=== PATIENT | female | born 1995 | race Caucasian/White ===

== ENCOUNTER → 2023-04-02 | Outpatient (CLI) | payer OTHER, SELFPAY ==
[2023-04-02 16:39] LABS: hCG Titer Quant., Serum 60 mIU/mL (1-3)
== END | disposition home or self-care (01) ==
LOC: PAVLAB 15:51
PROVIDERS: Referring Provider Obstetrics & Gynecology; Visit Provider Obstetrics & Gynecology
DX: N91.2 Amenorrhea, unspecified (principal)
CPT/HCPCS: 36415; 84702

== ENCOUNTER → 2023-04-04 | Outpatient (CLI) | payer OTHER, SELFPAY ==
[2023-04-04 16:42] LABS: hCG Titer Quant., Serum 127 mIU/mL (1-3)
== END | disposition home or self-care (01) ==
PROVIDERS: Referring Provider Obstetrics & Gynecology; Visit Provider Obstetrics & Gynecology
DX: N91.2 Amenorrhea, unspecified (principal)
CPT/HCPCS: 36415; 84702

== ENCOUNTER → 2023-04-10 | Outpatient (CLI) | payer OTHER, SELFPAY ==
--- NOTE | 2023-04-10 16:03 | US_ITS ---
INDICATION: VIABILITY EXAMINATION: Ultrasound US OB Transvaginal COMPARISON: None. FINDINGS: 84 grayscale ultrasound images of the pelvis obtained transvaginally. In addition dedicated ovarian color Doppler interrogation was performed. UTERUS: Uterus measures : 8.7 x 5.8 x 3.7 cm. Tiny cystic endometrial structure with mean sac diameter measuring at 0.46 cm corresponding to 5 weeks +2 days. This may contain yolk sac. However, no definite pole or cardiac activity is appreciated at this time Myometrium is unremarkable. ADNEXA: Flow is documented to bilateral ovaries by color Doppler. Right ovary is unremarkable. Anechoic left ovarian 2.2 cm lesion, likely corpus luteum cyst. No significant free fluid. US/Transvaginal w/Preg US IMPRESSION: Tiny cystic endometrial structure with mean sac diameter measuring at 0.46 cm corresponding to 5 weeks +2 days. However, no definite pole or cardiac activity is appreciated at this time. Recommend correlation with serial quantitative beta-hCG values as well as short interval follow-up ultrasound to confirm viable intrauterine . Left ovarian 2.2 cm likely corpus luteum cyst. Electronically Signed: Burke Herrera MD at 1:57 EDT ,
== END | disposition home or self-care (01) ==
PROVIDERS: PCP Internal Medicine; Referring Provider Obstetrics & Gynecology; Visit Provider Obstetrics & Gynecology
DX: N91.2 Amenorrhea, unspecified (principal); Z87.59 Personal history of other complications of pregnancy, childbirth and the puerperium
CPT/HCPCS: 76817

== ENCOUNTER → 2023-04-24 | Outpatient (CLI) | payer OTHER, SELFPAY ==
--- NOTE | 2023-04-24 18:17 | US_ITS ---
INDICATION: VIABILITY COMPARISON: OB ultrasound 04/10/2023. FINDINGS: 78 grayscale ultrasound images of the pelvis obtained transvaginally demonstrate single live intrauterine measuring at 7 weeks +0 days average ultrasound age. This gives estimated date of delivery by current ultrasound of 12/11/2023. However, crown-rump length measures at 6 weeks +6 days. Yolk sac is identified. heart rate 132 bpm. Adequate amniotic fluid for gestational age. Placenta cannot be definitively identified at this gestational age. Uterine myometrium is unremarkable. Uterine cervix is long and closed. Bilateral ovaries are unremarkable. No significant free fluid. US/Transvaginal w/Preg US IMPRESSION: Single live intrauterine measuring at 7 weeks +0 days average ultrasound age. This gives estimated date of delivery by current ultrasound of 12/11/2023. However, crown-rump length measures at 6 weeks +6 days. Electronically Signed: Burke Herrera MD at 0:11 EDT ,
== END | disposition home or self-care (01) ==
LOC: US 18:13
PROVIDERS: PCP Internal Medicine; Visit Provider Obstetrics & Gynecology
DX: Z34.00 Encounter for supervision of normal first pregnancy, unspecified trimester (principal)
CPT/HCPCS: 76817

== ENCOUNTER → 2023-05-03 | Outpatient (CLI) | payer OTHER, SELFPAY ==
[2023-05-07 20:08] LABS: Chlamydia By Nucleic Acid AMP Negative (Negative); Gonococcus By Nucleic Acid AMP Negative (Negative)
== END | disposition home or self-care (01) ==
LOC: LABSPEC 17:01
PROVIDERS: PCP Internal Medicine; Referring Provider Obstetrics & Gynecology; Visit Provider Obstetrics & Gynecology
DX: O09.90 Supervision of high risk pregnancy, unspecified, unspecified trimester (principal); Z3A.00 Weeks of gestation of pregnancy not specified
CPT/HCPCS: 87491; 87591

== ENCOUNTER 2023-05-04 10:33 | Outpatient (CLI) | payer OTHER, SELFPAY ==
[2023-05-04 11:10] VITALS: BP 144/80; PULSE 83; RESP 16; TEMP 35.8; O2SAT 100; BMI 39.9
[2023-05-04] MEDS: 0.9% NaCl Peripheral Flush Adult/Peds IV (11:14)
[2023-05-04] MEDS: Dextrose 5%-Lactated Ringers 1,000 ML 999 ML IV (11:15)
[2023-05-04] MEDS: Ondansetron 4 MG/2 ML Vial IV (11:15)
[2023-05-04 12:30] VITALS: BP 139/66; PULSE 80; RESP 16; O2SAT 100
== END 2023-05-04 10:34 | disposition home or self-care (01) ==
PROVIDERS: PCP Internal Medicine; Referring Provider Obstetrics & Gynecology; Visit Provider Obstetrics & Gynecology
DX: E86.0 Dehydration (principal)
CPT/HCPCS: 96374; 96361; A4216; J2405

== ENCOUNTER 2023-05-11 11:48 | Outpatient (CLI) | payer OTHER, SELFPAY ==
[2023-05-11 11:59] VITALS: BP 147/80; PULSE 84; RESP 16; TEMP 36.1; O2SAT 99; BMI 39.4
[2023-05-11] MEDS: Dextrose 5%-Lactated Ringers 1,000 ML 999 ML IV (12:07)
[2023-05-11] MEDS: 0.9% NaCl Peripheral Flush Adult/Peds IV (12:07)
[2023-05-11] MEDS: Ondansetron 4 MG/2 ML Vial IV (12:08)
[2023-05-11 13:21] VITALS: BP 132/83; PULSE 86
== END 2023-05-11 11:49 | disposition home or self-care (01) ==
LOC: MEDOUTP 11:50
PROVIDERS: PCP Internal Medicine; Referring Provider Advanced Practice Midwife; Visit Provider Advanced Practice Midwife
DX: E86.0 Dehydration (principal)
CPT/HCPCS: 96365; 96375; A4216; J2405

== ENCOUNTER → 2023-05-18 | Outpatient (CLI) | payer OTHER, SELFPAY ==
[2023-05-18 13:28] LABS: Absolute Lymphocyte Count 1.54 X10^3/uL (0.83-4.51); Basophil# 0.02 X10^3/uL; Basophil% 0.3 % (0-1); Eosinophil# 0.03 X10^3/uL; Eosinophils% 0.5 % (0-5); Hematocrit 39.2 % (37-47); Hemoglobin 13.5 g/dL (12.0-15.0); Lymphocyte # 1.54 X10^3/ul (0.83-4.51); Lymphocyte % 25.8 % (19-41); Mean Corp Hgb Conc 34.4 g/dL (32-36); Mean Corpuscular Hgb 28.7 pg (27.0-32.0); Mean Corpuscular Volume 83.4 fL (81-99); Mean Platelet Vol. 10.9 fl (6.2-12.0); Monocyte# 0.35 X10^3/uL; Monocyte% 5.9 % (0-10); NRBC Flagged by Analyzer 0 % (0-5); Neutrophil # 4.03 X10^3/uL (2.7-7.7); Neutrophil % 67.3 % (47-70); Platelet Count 255 K/mm3 (150-450); RBC Distribution Width CV 12.6 % (11.6-14.6); RBC Distribution Width SD 38.5 fl (35.1-43.9)
[2023-05-18 13:50] LABS: Glucose Challenge Gest 1H 50g 107 mg/dL (70-140)
[2023-05-18 14:36] LABS: HIV - WCH Non-Reactive (Nonreactive); Hepatitis B Surface Antigen Non-Reactive (Nonreactive); Hepatitis C Antibody Non-Reactive (Nonreactive); Rubella IgG Reactive (Nonreactive); Syphilis Antibodies Non-reactive
[2023-05-23 05:09] LABS: Anti-Cardiolipin Ab, IgA, Qn < 9 APL U/mL (0-11); Anti-Cardiolipin Ab, IgG, Qn < 9 GPL U/mL (0-14); Anti-Cardiolipin Ab, IgM, Qn < 9 MPL U/mL (0-12); Beta-2-Glycoprotein I IgA <9 (0-25); Beta-2-Glycoprotein I IgG <9 (0-20); Beta-2-Glycoprotein I IgM <9 (0-32); Dilute Prothrombin Time (dPT) 25.1 sec (0.0-47.6); Dilute Russell Viper Venom 29.4 sec (0.0-47.0); Interpretation Comment: (.); dPT Confirm Ratio 1.19 Ratio (0.00-1.34)
== END | disposition home or self-care (01) ==
LOC: LAB 12:52
PROVIDERS: Obstetrics & Gynecology; PCP Internal Medicine; Referring Provider Obstetrics & Gynecology; Visit Provider Obstetrics & Gynecology
DX: O09.90 Supervision of high risk pregnancy, unspecified, unspecified trimester (principal); O99.891 Other specified diseases and conditions complicating pregnancy; Z3A.00 Weeks of gestation of pregnancy not specified
CPT/HCPCS: 36415; 82950; 85025; 86146; 86147; 86703; 86762; 86780; 86803; 86850; 86900; 86901; 87086; 87088; 87340

== ENCOUNTER 2023-05-29 15:03 | Emergency (ER) | payer OTHER, SELFPAY ==
[2023-05-29 15:05] VITALS: BP 135/85; PULSE 114; RESP 18; TEMP 36; O2SAT 100; BMI 39.9
--- NOTE | 2023-05-29 16:34 | EX.ED.DYSGE1 ---
HPI History of Present Illness Chief Complaint: General Illness Informant: patient Narrative Narrative: Patient presents due to concern for dehydration. She is currently 13 weeks and has been having problems with nausea and vomiting. She is currently on Phenergan. She was seen at her OBs office today where her urine was reportedly dark. Usually we will send her to the infusion center to get IV fluids but they did not have any openings so she was told to come to the emergency room for fluids. She is having no abdominal pain or cramping. She is having no spotting. PFSH PFSH Medical History no medical history no medical history Home Medications docosahexaenoic acid 200 mg capsule ( DHA) 200 mg PO DAILY 04/25/23 [History Last Taken Unknown] promethazine 12.5 mg tablet 12.5 mg PO Q6H PRN nausea and vomiting #30 tabs 05/29/23 [Rx Last Taken Unknown] Allergy/AdvReac Type Severity Reaction Status Date / Time No Known Allergies Allergy Verified 05/29/23 15:05 Family History Mother Thyroid disorder Father Bleeding disorder unknown name Surgical History H/O dilation and curettage Social History adopted: No household members: spouse current occupational status: employed current occupation: [employer] pets and animals: Yes pets and animals: cat(s) history of recent travel: No sexually active: Yes Smoking Status: Never smoker alcohol intake: never substance use type: does not use caffeine: No seatbelt use: always do you feel safe at home: Yes additional social history: Yariel RIVERA MIGUEL ED Constitutional Constitutional ED: Denies chills or fever(s) Eyes Eyes: Denies discharge from eye(s) ENT ENT ED: Denies discharge from eye(s), rhinorrhea or sore throat Cardiovascular Cardiovascular: Denies chest pain or palpitations Respiratory/Chest Respiratory/Chest: Denies cough or dyspnea Gastrointestinal Gastrointestinal: Reports nausea and vomiting; Denies abdominal pain Genitourinary Genitourinary ED: Denies dysuria Musculoskeletal Musculoskeletal: Denies back pain or extremity pain Integumentary Denies Abrasions or rash Neurologic Neurologic: Denies headache(s) or weakness Psychiatric Psychiatric: Denies anxiety or depression Allergic/Immunologic Allergic/Immunologic ED: Denies lip swelling or urticaria EXAM Physical Exam Const Vital Signs: 05/29/23 15:05 05/29/23 16:23 Temperature 96.8 F L Temperature Source Temporal Pulse Rate 114 H Respiratory Rate 18 Respiratory Effort Normal Non-Labored Blood Pressure 135/85 H Blood Pressure Mean 101 Pulse Ox 100 Positive well nourished and well developed General Appearance ED: well developed HEENT Reports normocephalic and head/scalp atraumatic Eyes PERRL and EOMs intact bilaterally Neck supple Chest Wall inspection of chest normal and palpation of chest normal Resp normal respiratory effort and clear to auscultation bilaterally Cardio regular rhythm Rate: tachycardic GI normal to inspection, nondistended, normoactive bowel sounds Palpation: soft Extremity normal to inspection Neuro oriented x3 and no sensory deficits noted Sensorium / Orientation: alert Motor Exam: strength 5/5 throughout Psych mental status grossly normal Skin no rashes or lesions noted MDM MDM MDM Narrative Medical decision making narrative: IV line established and patient given a liter IV fluids. BMP obtained to evaluate electrolyte status Lab Data Labs: Laboratory Results - last 24 hr 05/29/23 16:23 Sodium 136 Potassium 4.0 Chloride 106 Carbon Dioxide 24.0 Anion Gap 6 BUN 5 L Creatinine 0.62 Estim Creat Clear Calc 101.94 Est GFR (MDRD) Af Amer 146 Est GFR (MDRD) Non-Af 120 BUN/Creatinine Ratio 8.0 L Glucose 87 Calcium 10.1 Treatment and Re-Evaluation :: Chemistry studies unremarkable with normal potassium and renal function.. Patient be discharged upon the completion of her 1 L IV fluid bolus. Patient is comfortable with the plan. Discharge Plan Triage Chief Complaint: General Illness ED Provider: Loretta Morris Dx/Rx/DC Orders Clinical Impression: Dehydration Instructions: ED Dehydration (Adult) Prescriptions: No Action DHA 200 mg capsule 200 mg PO DAILY promethazine 12.5 mg tablet 12.5 mg PO Q6H PRN (Reason: nausea and vomiting) Qty: 30 2RF Primary Care Provider: Annemarie Guillen Referrals: Annemarie Guillen MD [Primary Care Provider] - Disposition Disposition: Home, Self Care
[2023-05-29] MEDS: 0.9% Normal Saline (1000mL) 1,000 ML 1000 ML IV (16:52)
[2023-05-29 17:05] LABS: Anion Gap 6 (5-15); BUN 5 mg/dL (7-18); Calcium,Total 10.1 mg/dL (8.5-10.1); Chloride 106 mmol/L (98-107); Creatinine, Serum 0.62 mg/dL (0.55-1.02); EST Glomerular Filtration Rate 120 mL/min (>60); Est Glom Filt Rate - Afr Amer 146 mL/min (>60); Estimated Creatinine Clearance 101.94 ml/min; Glucose 87 mg/dL (74-106); Sodium Level 136 mmol/L (136-145)
== END 2023-05-29 18:45 | disposition home or self-care (01) ==
PROVIDERS: Emergency Provider Emergency Medicine; PCP Internal Medicine; Visit Provider Emergency Medicine
DX: O99.281 Endocrine, nutritional and metabolic diseases complicating pregnancy, first trimester (principal); O21.9 Vomiting of pregnancy, unspecified; E86.0 Dehydration; Z3A.13 13 weeks gestation of pregnancy
CPT/HCPCS: 80048; 96360; 96361; 99282; J7030; A4216

== ENCOUNTER → 2023-06-12 | Outpatient (CLI) | payer OTHER, SELFPAY ==
[2023-06-12 11:38] LABS: NATERA MAILED SPECIMEN
== END | disposition home or self-care (01) ==
LOC: PAVLAB 10:00
PROVIDERS: PCP Internal Medicine; Referring Provider Advanced Practice Midwife; Visit Provider Advanced Practice Midwife
DX: Z34.02 Encounter for supervision of normal first pregnancy, second trimester (principal); Z3A.00 Weeks of gestation of pregnancy not specified
CPT/HCPCS: 36415

== ENCOUNTER → 2023-06-15 | Outpatient (CLI) | payer OTHER, SELFPAY | END | disposition home or self-care (01) | PROVIDERS: PCP Internal Medicine; Visit Provider Obstetrics & Gynecology | DX: O26.899 Other specified pregnancy related conditions, unspecified trimester (principal); R30.0 Dysuria; Z3A.00 Weeks of gestation of pregnancy not specified | CPT/HCPCS: 87086; 87088; 87186 ==

== ENCOUNTER → 2023-09-04 | Outpatient (CLI) | payer OTHER, SELFPAY ==
[2023-09-04 14:41] LABS: Absolute Lymphocyte Count 1.09 X10^3/uL (0.83-4.51); Absolute Neutrophil Count 5.3 X10^3/uL (2.0-7.7); Basophil# 0.01 X10^3/uL; Basophil% 0.1 % (0-1); Eosinophil# 0.08 X10^3/uL; Eosinophils% 1.1 % (0-5); Hematocrit 36.2 % (37-47); Hemoglobin 12.1 g/dL (12.0-15.0); Lymphocyte # 1.09 X10^3/ul (0.83-4.51); Lymphocyte % 15.6 % (19-41); Mean Corp Hgb Conc 33.4 g/dL (32-36); Mean Corpuscular Hgb 28.6 pg (27.0-32.0); Mean Corpuscular Volume 85.6 fL (81-99); Monocyte% 7.1 % (0-10); NRBC Flagged by Analyzer 0 % (0-5); Neutrophil # 5.29 X10^3/uL (2.7-7.7); Neutrophil % 75.7 % (47-70); Platelet Count 219 K/mm3 (150-450); RBC Distribution Width CV 13.5 % (11.6-14.6); RBC Distribution Width SD 41.6 fl (35.1-43.9); Red Blood Count 4.23 M/mm3 (4.2-5.4)
[2023-09-04 15:08] LABS: Glucose Challenge Gest 1H 50g 109 mg/dL (70-140)
[2023-09-04 16:27] LABS: HIV - WCH Non-Reactive (Nonreactive); Syphilis Antibodies Non-reactive
== END | disposition home or self-care (01) ==
PROVIDERS: Referring Provider Obstetrics & Gynecology; Visit Provider Obstetrics & Gynecology
DX: Z34.92 Encounter for supervision of normal pregnancy, unspecified, second trimester (principal); Z3A.22 22 weeks gestation of pregnancy
CPT/HCPCS: 36415; 82950; 85025; 86703; 86780

== ENCOUNTER → 2023-10-16 | Outpatient (CLI) | payer OTHER, SELFPAY ==
--- NOTE | 2023-10-16 14:07 | US_ITS ---
STUDY: SECOND AND THIRD TRIMESTER OBSTETRICAL ULTRASOUND REASON FOR EXAM: Female, 27 years old growth LMP: March 02, 2023. TECHNIQUE: Transabdominal TECHNICAL QUALITY: Adequate. PRIOR ULTRASOUND: None. FINDINGS: There is a single intrauterine fetus. The fetus is in a breech presentation. There is demonstrated cardiac activity with a heart rate of 136 bpm. There is a normal amniotic fluid volume. The largest amniotic fluid pocket measures 5.6 cm. The amniotic fluid index (BARRON) is 20 cm. The placenta is posterior in location and is not low lying. There are Grade 1 placental changes. The cervix was not measured. BIOMETRY: BPD: 8.1 cm: 32 weeks, 5 days HC: 30.1 cm: 33 weeks, 2 days AC: 30.4 cm: 34 weeks, 3 days FL: 6.4 cm: 32 weeks, 6 days CI: 78% FL/BPD: 78.2% FL/HC: FL/AC: 20.9% HC/AC: 1 age by current US: 33 weeks, 0 days. BRYANT by current US: December 04, 2023. Estimated weight: 2276 grams, +/- 341 grams, 77 %. Age by LMP: 32 weeks, 4 days. BRYANT by LMP: December 07, 2023. US/OB Limited With Biometrics IMPRESSION: Single live intrauterine gestation with a mean gestational age of 33 weeks. Electronically Signed: Julius Loco MD at 15:37 EST ,
== END | disposition home or self-care (01) ==
PROVIDERS: Referring Provider Obstetrics & Gynecology; Visit Provider Obstetrics & Gynecology
DX: O23.40 Unspecified infection of urinary tract in pregnancy, unspecified trimester (principal); O99.210 Obesity complicating pregnancy, unspecified trimester; Z3A.00 Weeks of gestation of pregnancy not specified
CPT/HCPCS: 76816; 87086

== ENCOUNTER → 2023-11-13 | Outpatient (CLI) | payer OTHER, SELFPAY ==
--- NOTE | 2023-11-13 16:00 | US_ITS ---
STUDY: SECOND AND THIRD TRIMESTER OBSTETRICAL ULTRASOUND - LIMITED REASON FOR EXAM: Female, 27 years old growth LMP: 03/02/2023 PRIOR ULTRASOUND: 10/16/2023 TECHNIQUE: Transabdominal TECHNICAL QUALITY: Adequate. FINDINGS: There is a single intrauterine fetus. The fetus is in a cephalic presentation. There is demonstrated cardiac activity with a heart rate of 147 bpm. There is a normal amniotic fluid volume. The largest amniotic fluid pocket measures 6.5 cm. The amniotic fluid index (BARRON) is 15.1 cm. The placenta is fundal in location. There are Grade 1 placental changes. The cervix measures cm in length. BIOMETRY: BPD: 8.8 cm: 35 weeks, 4 days HC: 33.6 cm: 38 weeks, 3 days AC: 35.1 cm: 39 weeks, 0 days FL: 7.1 cm: 36 weeks, 1 days Age by LMP: 36 weeks, 4 days. BRYANT by LMP: 12/07/2023. age by prior US: weeks, days. BRYANT by prior US: . age by current US: 37 weeks, 2 days. BRYANT by current US: 12/02/2023. Estimated weight: 3319 grams, +/- 498 grams, 84 percentile. Gender: US/OB Limited With Biometrics IMPRESSION: Living intrauterine of 37 weeks 2 days as described above. Electronically Signed: Dieudonne Sibley MD at 0:00 EDT ,
== END | disposition home or self-care (01) ==
PROVIDERS: Referring Provider Obstetrics & Gynecology; Visit Provider Obstetrics & Gynecology
DX: O09.90 Supervision of high risk pregnancy, unspecified, unspecified trimester (principal); Z3A.00 Weeks of gestation of pregnancy not specified
CPT/HCPCS: 76816; 87081

== ENCOUNTER 2023-11-16 18:30 | Outpatient (CLI) | payer OTHER, SELFPAY ==
[2023-11-16 18:46] VITALS: BP 152/85; PULSE 78
[2023-11-16 18:59] VITALS: RESP 16; TEMP 36.7
[2023-11-16 19:04] VITALS: BP 135/82; PULSE 80
[2023-11-16 19:04] LABS: Hematocrit 34.2 % (37-47); Hemoglobin 11.1 g/dL (12.0-15.0); Mean Corp Hgb Conc 32.5 g/dL (32-36); Mean Corpuscular Hgb 26.2 pg (27.0-32.0); Mean Corpuscular Volume 80.9 fL (81-99); Mean Platelet Vol. 12.3 fl (6.2-12.0); Platelet Count 208 K/mm3 (150-450); RBC Distribution Width SD 37.2 fl (35.1-43.9); Red Blood Count 4.23 M/mm3 (4.2-5.4); White Blood Count 8.3 K/mm3 (4.4-11.0)
[2023-11-16 19:19] VITALS: BP 137/74; PULSE 76
[2023-11-16 19:22] LABS: AST(SGOT) 20 U/L (15-37); Alanine Aminotransfer ALT/SGPT 13 U/L (13-56); Creatinine, Serum 0.68 mg/dL (0.55-1.02); EST Glomerular Filtration Rate 108 mL/min (>60); Est Glom Filt Rate - Afr Amer 131 mL/min (>60); Protein, Urine (Random) 29.9 mg/dL (<11.9); Protein:Creat Ratio 260 mg/g CRE (0-200); Uric Acid 4.2 mg/dL (2.6-6.0)
[2023-11-16 19:36] VITALS: BP 116/75; PULSE 78
--- NOTE | 2023-11-18 04:41 | OB.TRI.PN_ITS ---
Progress Notes Date of Service: 11/16/23 Progress Note: Patient presents for triage evaluation secondary to elevated bps FHT: 140 Moderate variability reactive no decelerations category I tracing [place]: no regular Contractions Assessment and plan: elevated bps - repetas WNL Reactive NST, reassuring maternal and status patient discharged to home to follow-up as scheduled. See problem list details for additional plan information. Laboratory Studies: Laboratory Tests 11/16/23 Range/Units 18:50 WBC 8.3 (4.4-11.0) K/mm3 RBC 4.23 (4.2-5.4) M/mm3 Hgb 11.1 L (12.0-15.0) g/dL Hct 34.2 L (37-47) % MCV 80.9 L (81-99) fL MCH 26.2 L (27.0-32.0) pg MCHC 32.5 (32-36) g/dL RDW Std Deviation 37.2 (35.1-43.9) fl RDW Coeff of Dominique 13.0 (11.6-14.6) % Plt Count 208 (150-450) K/mm3 MPV 12.3 H (6.2-12.0) fl Creatinine 0.68 (0.55-1.02) mg/dL Est GFR (MDRD) Af Amer 131 (>60) mL/min Est GFR (MDRD) Non-Af 108 (>60) mL/min Uric Acid 4.2 (2.6-6.0) mg/dL AST 20 (15-37) U/L ALT 13 (13-56) U/L U Random Total Protein 29.9 H (<11.9) mg/dL Urine Creatinine 115.00 (NO RANGE EST.) mg/dL Protein/Creatinin Ratio 260 H (0-200) mg/g CRE Charges/Coding Procedures Urinary/Genital 52xxx-59xxx: [id number] non-stress test Interp
== END 2023-11-16 19:50 | disposition home or self-care (01) ==
LOC: WPOUT 18:38 → WP 18:38
PROVIDERS: Referring Provider Obstetrics & Gynecology; Visit Provider Obstetrics & Gynecology
DX: O99.891 Other specified diseases and conditions complicating pregnancy (principal); R03.0 Elevated blood-pressure reading, without diagnosis of hypertension; Z3A.00 Weeks of gestation of pregnancy not specified
CPT/HCPCS: 36415; 59025; 59050; 82565; 82570; 84156; 84450; 84460; 84550; 85027; 99221; G0378

== ENCOUNTER 2023-11-20 17:10 | Inpatient (IN) | payer OTHER, SELFPAY ==
[2023-11-20] VITALS (44 sets, daily range): BP systolic 136–167; BP diastolic 73–93; PULSE 75–109; RESP 16–20; TEMP 36.7–37.6; O2SAT 93–100; BMI 42.7
[2023-11-20 16:32] LABS: Protein, Urine (Random) 65.5 mg/dL (<11.9); Protein:Creat Ratio 425 mg/g CRE (0-200)
[2023-11-20] MEDS: 0.9% Saline Lock 10 ML Syringe IV ×2 (16:40→20:15)
[2023-11-20 16:55] LABS: Hematocrit 34.4 % (37-47); Hemoglobin 11.2 g/dL (12.0-15.0); Mean Corp Hgb Conc 32.6 g/dL (32-36); Mean Corpuscular Hgb 26.1 pg (27.0-32.0); Mean Corpuscular Volume 80.2 fL (81-99); Mean Platelet Vol. 12.5 fl (6.2-12.0); Platelet Count 199 K/mm3 (150-450); RBC Distribution Width CV 12.9 % (11.6-14.6); RBC Distribution Width SD 36.7 fl (35.1-43.9); Red Blood Count 4.29 M/mm3 (4.2-5.4)
[2023-11-20] MEDS: Acetaminophen 500 MG Tablet 1000 MG PO (17:04)
[2023-11-20 17:08] LABS: AST(SGOT) 21 U/L (15-37); Alanine Aminotransfer ALT/SGPT 11 U/L (13-56); Creatinine, Serum 0.73 mg/dL (0.55-1.02); EST Glomerular Filtration Rate 100 mL/min (>60); Est Glom Filt Rate - Afr Amer 121 mL/min (>60); Estimated Creatinine Clearance 125.09 ml/min; Uric Acid 4.8 mg/dL (2.6-6.0)
--- NOTE | 2023-11-20 17:30 | HP.PCM.OB_ITS ---
HPI - General General Date of Admission: 11/20/23 Date of Service: 11/20/23 HPI Savannah PALACIOS, is a 28 F 37.4 weeks gestation who presents to unit from office with elevated BP, visual changes and headache. Elevated P/C ratio and blood pressures. Decision made for admission Maternal Data Information BRYANT Calculator Estimated Delivery Date Method Current WG Current Estimate 12/07/23 LMP (Certain) 37w 4d Other Estimates 12/12/23 Ultrasound #1 36w 6d Final BRYANT: 11/20/23 Final BRYANT Source: US >20 weeks Gestational age: 37.4 weeks [facility] Medical History (Updated 11/20/23 @ 17:34 by Bel Wilson CNM) Pre-eclampsia Home Medications docosahexaenoic acid 200 mg capsule ( DHA) 200 mg PO DAILY 04/25/23 [History Last Taken Unknown] promethazine 12.5 mg tablet 12.5 mg PO Q6H PRN nausea and vomiting #30 tabs 05/29/23 [Rx Last Taken Unknown] famotidine 20 mg tablet (Pepcid) 20 mg PO BID 90 days #180 tabs 09/04/23 [Rx Last Taken Unknown] Allergy/AdvReac Type Severity Reaction Status Date / Time No Known Allergies Allergy Verified 11/20/23 17:01 Family History Mother Thyroid disorder Father Bleeding disorder unknown name Surgical History (Updated 11/20/23 @ 17:29 by Yvan Lanier) H/O dilation and curettage Hx of tonsillectomy Social History adopted: No household members: spouse current occupational status: employed current occupation: [employer] pets and animals: Yes pets and animals: cat(s) history of recent travel: No sexually active: Yes Smoking Status: Never smoker alcohol intake: never substance use type: does not use caffeine: No seatbelt use: always do you feel safe at home: Yes additional social history: Yariel History 3 Elective abortions Hx Para 0 Spontaneous abortions Hx # Term Pregnancies Ectopic pregnancies Hx # Pregnancies Multiple births # of living children Past Pregnancies Del. Date Name GA/Weeks Outcome Route Bth Weight Gen Labor Lgth Anesthesia Del Locatn Provider FOB 07/12/22 spontaneous 11/27/22 spontaneous Visit Details Expected Delivery Route/Plan Labor Preferences- CB/BF classes: done labor support person: stefany haros- bel and jeannette labor intervention preferences: [] pain management options preferred: epidural cut cord/dad catch:yes : yes PP control planned: [] discussed possible routes of delivery and associated risks: [] special requests: [] Plans Covid status: [] Flu vaccine: [] Tdap vaccine: given Rhogam: na LARC form signed: declined movement and labor precautions reviewed. Problem list reviewed and updated with the most current plan of care details and appropriate orders placed. Relevant counseling for the gestational age provided. Continue routine care and follow up unless otherwise noted in visit notes/problem list details OB Flowsheet Initial Weight: Not Recorded Date -?-?-?-?-?-?-?-?-?-?-?-?- EGA Weight BP Urine Prot -?-?-?-?-?-?-?-?-?-?-?-?- Glucose FHR FuHt Pres Dilation -?-?-?-?-?-?-?-?-?-?-?-?- Effaced St Visit Note 05/03/23 -?-?-?-?-?-?-?-?-?-?-?-?- 8w 6d 218 lb 4 oz 128/85 -?-?-?-?-?-?-?-?-?-?-?-?- 170 -?-?-?--?-?-?-?-?-?-?-?-?- Sm- CRL 1.8 cm c ons with LMP 05/18/23 -?-?-?-?-?-?-?-?-?-?-?-?- 11w 0d 218 lb 2 oz 126/84 -?-?-?-?-?-?-?-?-?-?-?-?- 168 -?-?-?-?-?-?-?-?-?-?-?-?- SM- no vb crampi ng nausea somewhat improved 05/29/23 -?-?-?-?-?-?-?-?-?-?-?-?- 12w 4d 211 lb 8 oz 1+ -?-?-?-?-?-?-?--?-?-?-?-?- Negative 178 -?-?-?-?-?-?-?-?-?-?-?-?- kw-no vb/crampin g. no concerns. feeling dehydrated and considering IV hydration with infusion center-recommend IV infusion 06/12/23 -?-?-?-?-?-?-?-?-?-?-?-?- 14w 4d 213 lb 4 oz 131/82 Nega tive -?-?-?-?-?-?-?-?-?-?-?-?- Negative 145 -?-?-?-?-?-?-?--?-?-?-?-?- KW-no vb/crampin g. feeling much better. desires NIPT today. AFP discussed and declined today. anatomy US on 07/1707/10/23 -?-?-?-?-?-?-?-?-?-?-?-?- 18w 4d 214 lb 8 oz 118/77 Nega tive -?-?-?-?-?-?-?-?-?-?-?-?- Negative 140 -?-?-?-?-?-?-?-?-?-?-?-?- KW-no vb/crampin g. NOB book given today. no concerns. Having a boy!! 08/07/23 -?-?-?-?-?-?-?-?-?-?-?-?- 22w 4d 215 lb 8 oz 128/79 Nega tive -?-?-?-?-?-?-?-?-?-?-?-?- Negative 145 24 -?--?-?-?-?-?-?-?-?-?-?-?- kw-no vb/crampin g. good fm. 28 weeks labs discussed. Discussed LARC and wants to think about. no concerns today 09/04/23 -?-?-?-?-?-?-?-?-?-?-?-?- 26w 4d 215 lb 2 oz 126/86 Nega tive -?-?-?-?-?-?-?-?-?-?-?-?- Negative 140 29 -?-?-?-?-?-?-?-?-?-?-?-?- JV- normal 28 we ek labs. rpt ultrasound for low lying placenta coming up soon. c/o worsening reflux. rx pepcid sent to pharmacy to take twice a day. 09/18/23 -?-?-?-?-?-?-?-?-?-?-?-?- 28w 4d 217 lb 6 oz 132/82 -?-?-?-?-?-?-?-?-?-?-?-?- 140 32 -?-?-?-?-?-?-?-?-?-?-?-?- KW-no vb/jacquelyn cohen good fm. US reviewed. 10/02/23 -?-?-?-?-?-?-?-?-?-?-?-?- 30w 4d 215 lb 125/85 Negative -?-?-?-?-?-?-?-?-?-?-?-?- Negative 145 32 -?-?-?-?-?-?-?-?-?-?-?-?- SM- no vb lof go od fm no regualr ctx doing well tdap today larc signed 10/16/23 -?-?-?-?-?-?-?-?-?-?-?-?- 32w 4d 215 lb 125/85 Negative -?-?-?-?-?-?-?-?-?-?-?-?- Negative 145 34 -?-?-?--?-?-?-?-?-?-?-?-?- SM- no vb lof go od fm no regular ctx 10/30/23 -?-?-?-?-?-?-?-?-?-?-?-?- 34w 4d 223 lb 4 oz 130/84 Nega tive -?-?-?-?-?-?-?-?-?-?-?-?- Negative 125 35 -?-?-?-?-?-?-?-?-?-?-?-?- MH-No VB, LOF. G ood FM. NST reactive 11/06/23 -?-?-?-?-?-?-?-?-?-?-?-?- 35w 4d 222 lb 2 oz 133/84 -?-?-?-?-?-?-?-?-?-?-?-?- 140 -?-?-?-?-?-?-?-?-?-?-?-?- KW- NST only yeimi ctive 11/13/23 -?-?-?-?-?-?-?-?-?-?-?-?- 36w 4d 228 lb 147/87 120/80 Trace -?-?-?-?-?-?-?-?-?-?-?-?- Negative 140 -?-?-?-?-?-?-?-?-?-?-?-?- Sm- no vb lof go od fm no regular ctx gbs collected, repeat bp WNL 11/20/23 -?-?-?-?-?-?-?-?-?-?-?-?- 37w 4d 226 lb 2 oz 138/90 1+ -?-?-?-?-?-?-?-?-?-?-?-?- Negative 130 -?-?-?-?-?-?-?-?-?-?-?-?- JV- pressures el evated and pt complains of headache and visual changes. sending to L&D. NST FHR Rate Baby A Baseline: 130 Variability:: Moderate Accelerations:: 15 x 15 Decelerations:: None NST Reactive:: Yes FHR Category:: Category I Uterine Activity:: none ROS Constitutional Constitutional: Denies change in weight, fatigue, fever(s), headache(s), poor appetite or weakness Eyes Eyes: Denies blurry vision, change in vision, floaters, seeing flashes or spots in vision ENT HEENT: Reports dizziness and headache(s); Denies loss taste/smell or sore throat Cardiovascular Cardiovascular: Reports dizziness and lightheadedness; Denies chest pain, dyspnea, irregular heart rhythm, palpitations or rapid heart rate Respiratory/Chest Respiratory/Chest: Denies change in mental status, chest tightness, cough, dyspnea or breast pain Gastrointestinal Gastrointestinal: Denies anorexia, chewing difficulty, constipation, diarrhea or weight changes Genitourinary Genitourinary: Denies difficulty urinating, dysuria, flank pain, genital pain, urinary frequency or urinary urgency Musculoskeletal Musculoskeletal: Denies back pain, difficulty walking, extremity pain, joint pain, muscle cramps or muscle weakness Integumentary Integumentary: Denies lesions or unusual bruising Neurologic Neurologic: Denies abnormal movements, abnormal speech, dizziness, numbness, seizure-like activity, syncope or weakness Psychiatric Psychiatric: Denies behavioral changes, change in appetite, confusion, depression, homicidal ideation, suicidal ideation or suicidal thoughts Endocrine Endocrinology: Denies excessive sweating, polydipsia or polyuria Hematologic/Lymphatic Hematologic/Lymphatic: Denies anemia Allergic/Immunologic Allergic/Immunologic: Denies itchy eyes, lip swelling, throat swelling, tongue swelling or wheezing Vital Signs Vital Signs Vital Signs: 11/20/23 16:17 11/20/23 16:17 11/20/23 16:20 Pulse Rate 84 Blood Pressure 160/92 H BP Systolic 160 BP Diastolic 92 Pulse Ox 98 11/20/23 16:20 11/20/23 16:22 11/20/23 16:22 Pulse Rate 86 87 Blood Pressure BP Systolic BP Diastolic Pulse Ox 98 11/20/23 16:27 11/20/23 16:27 11/20/23 16:32 Pulse Rate 89 91 Blood Pressure BP Systolic BP Diastolic Pulse Ox 98 11/20/23 16:32 11/20/23 16:35 11/20/23 16:35 Pulse Rate 83 Blood Pressure 161/92 H BP Systolic 161 BP Diastolic 92 Pulse Ox 98 11/20/23 16:37 11/20/23 16:37 11/20/23 16:42 Pulse Rate 86 87 Blood Pressure BP Systolic BP Diastolic Pulse Ox 98 11/20/23 16:42 11/20/23 16:47 11/20/23 16:47 Pulse Rate 84 Blood Pressure BP Systolic BP Diastolic Pulse Ox 98 100 11/20/23 16:50 11/20/23 16:50 11/20/23 16:52 Pulse Rate 93 85 Blood Pressure 156/90 H BP Systolic 156 BP Diastolic 90 Pulse Ox 11/20/23 16:52 11/20/23 16:57 11/20/23 16:57 Pulse Rate 85 Blood Pressure BP Systolic BP Diastolic Pulse Ox 100 96 11/20/23 17:02 11/20/23 17:02 11/20/23 17:05 Pulse Rate 84 Blood Pressure 153/92 H BP Systolic 153 BP Diastolic 92 Pulse Ox 99 11/20/23 17:05 11/20/23 17:07 11/20/23 17:07 Pulse Rate 90 95 Blood Pressure BP Systolic BP Diastolic Pulse Ox 99 11/20/23 17:12 11/20/23 17:12 11/20/23 17:17 Pulse Rate 88 89 Blood Pressure BP Systolic BP Diastolic Pulse Ox 100 11/20/23 17:17 11/20/23 17:20 11/20/23 17:20 Pulse Rate 83 Blood Pressure 167/93 H BP Systolic 167 BP Diastolic 93 Pulse Ox 99 11/20/23 17:22 11/20/23 17:22 11/20/23 17:28 Pulse Rate 83 87 Blood Pressure BP Systolic BP Diastolic Pulse Ox 99 11/20/23 17:28 Pulse Rate Blood Pressure BP Systolic BP Diastolic Pulse Ox 98 Weight Weight: 226 lb Body Mass Index (BMI) 42.7 Physical Exam Const alert, oriented x3 and no apparent distress General Appearance: cooperative Orientation / Consciousness: awake HEENT normocephalic Neck full ROM Lymph Lymphatic: no lymphadenopathy noted Chest inspection of chest normal Resp normal respiratory effort and normal air movement Effort and Inspection: able to speak in complete sentences and symmetric chest movement GI soft to palpation and non-tender Inspection: gravid Palpation: soft; Negative for tender external exam normal Manual OB Exam: dilated 1, effaced 30 and station -2 Back/Spine normal to inspection Extremity normal to inspection and full ROM Skin no rashes or lesions noted Psych mental status grossly normal Appearance: grossly normal Speech: normal speech Labs Labs Labs: Blood Type A POSITIVE Antibody Screen NEGATIVE Hct 34.4 % (37-47) L Hgb 11.2 g/dL (12.0-15.0) L Obstetrics Ultrasound Syphilis Total Ab Non-reactive Rubella IgG Antibody Reactive (Nonreactive) Hep Bs Antigen Non-Reactive (Nonreactive) Hepatitis C Antibody Non-Reactive (Nonreactive) Chlamydia DNA (RANI) Negative (Negative) N.gonorrhoeae DNA (RANI) Negative (Negative) HIV 1&2 Antibody Non-Reactive (Nonreactive) Glucose 1 Hr 50 gm 109 mg/dL (70-140) Assessment & Plan (1) History of recurrent miscarriages: COMMENT: 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 recommend weekly nsts after 34 weeks and growth US q 4 weeks (3) : QUALIFIERS: Weeks of gestation: 37 weeks Qualified Code(s): Z3A.37 - 37 weeks gestation of COMMENT: GBS neg, visualized anatomy nl, NIPT low risk, declined afp and carrier (4) Supervision of high risk , antepartum: COMMENT: PRR BRYANT 12/07/23 boy Nathan Spouse Yariel (5) Pre-eclampsia affecting , antepartum: COMMENT: IOL at 37.4 weeks PLAN: Patient presents IOL, plan management for with cytotec/felipe bulb/pitocin/AROM. Pain management: plans epidural. GBS negative. Management of any complications: none I have reviewed the [facility] and made any clinically relevant updates. Dr Pompa aware of labs/assessment/ and agrees with plan of care Charges/Coding Multi Select Codes Urinary/Genital Urinary/Genital CPT Codes: No Charge
[2023-11-20 18:05] LABS: Syphilis Antibodies Non-reactive
[2023-11-20] MEDS: miSOPROStol 25 MCG TABLET VAGINAL (18:14)
[2023-11-20] MEDS: CHLORHEXIDINE GLUC 2% CLOTH 1 EACH TOWELETTE TOPICAL (19:25)
[2023-11-20] MEDS: Ondansetron 4 MG/2 ML Vial IV (20:15)
--- NOTE | 2023-11-20 22:16 | PCM.PN.BLA ---
Progress Note Coping well with cramping current tracing: FHT: 135 Moderate variability reactive no decelerations category I tracing [place]: irregular cramping Membranes:intact SVE:150/-2 anterior position, softer consistency than previous exam. A/P: Continue with position changes Increase Cytotec to 50 mcg q 6 hours. To call if cervical exam significantly different from previous exam Epidural per anesthesia when requested neg GBS Anticipate Dr Pompa aware of above assessment and agrees with plan of care Assessment & Plan Assessment/Plan (1) Pre-eclampsia affecting , antepartum: (2) History of recurrent miscarriages: (3) Obesity: QUALIFIERS: Obesity type: unspecified obesity type Obesity classification: unspecified obesity classification Serious obesity comorbidity presence: without serious comorbidity Qualified Code(s): E66.9 - Obesity, unspecified (4) : QUALIFIERS: Weeks of gestation: 37 weeks Qualified Code(s): Z3A.37 - 37 weeks gestation of (5) Supervision of high risk , antepartum: Multi Select Codes Urinary/Genital Urinary/Genital CPT Codes: No Charge
[2023-11-21] VITALS (63 sets, daily range): BP systolic 111–182; BP diastolic 55–94; PULSE 37–136; RESP 15–18; TEMP 36.5–37.3; O2SAT 81–100
[2023-11-21] MEDS: miSOPROStol 100 MCG TABLET 50 MCG VAGINAL (04:23)
[2023-11-21] MEDS: Ondansetron 4 MG/2 ML Vial IV ×3 (06:55→21:43)
[2023-11-21] MEDS: 0.9% Saline Lock 10 ML Syringe IV ×5 (06:55→21:43)
[2023-11-21] MEDS: 0.9% Normal Saline Single 100 ML IV.SOLN. INTRA-UTER (08:20)
[2023-11-21] MEDS: CHLORHEXIDINE GLUC 2% CLOTH 1 EACH TOWELETTE TOPICAL ×2 (08:38→20:35)
--- NOTE | 2023-11-21 09:02 | PN_ITS ---
Progress Note pt is comfortable and consents to a felipe bulb placement current tracing: FHT: Moderate variability reactive no decelerations category I tracing [place]: irregular Contractions cx: /-2 22 fr felipe placed in the cervix and filled with 50cc of NS. patient tolerated this well A/P: pre-e with severe features now resolved. continue IOL. had 50mcg of cytec at 0330, start pit [id number]
[2023-11-21] MEDS: Oxytocin 15 Units/NS 250ml 15 UNITS/250 ML IV.SOLN 2 UNITS IV (10:28)
[2023-11-21] MEDS: Lactated Ringers 1,000 ML 50 ML IV ×2 (10:29→18:08)
[2023-11-21] MEDS: LACTATED RINGERS 500 ML 999 ML IV ×2 (12:39→18:18)
--- NOTE | 2023-11-21 13:16 | PN_ITS ---
Progress Note felipe is out and patient consents to AROM current tracing: FHT: Moderate variability reactive no decelerations category I tracing [place]: q 2 min Contractions cs: 4 cm prior to arom and 5 cm/70/-1 after arom. Clear fluid returned. infant hand presenting slightly. pt unable to tolerate reducing this. A/P: epidural now then plan to reduce hand.
[2023-11-21] MEDS: fentaNYL-bupivacaine (epidural) 100 ML BAG EPIDURAL ×3 (13:36→22:55)
[2023-11-21] MEDS: Labetalol 200 MG Tablet PO (22:05)
[2023-11-21] MEDS: Acetaminophen 500 MG Tablet PO (23:07)
[2023-11-21] MEDS: Lactated Ringers 1,000 ML 200 ML IV (23:42)
[2023-11-22] VITALS (27 sets, daily range): BP systolic 110–158; BP diastolic 58–104; PULSE 79–108; RESP 13–26; TEMP 32–37.4; O2SAT 96–100
[2023-11-22] MEDS: 0.9% Saline Lock 10 ML Syringe IV ×4 (00:11→20:30)
[2023-11-22] MEDS: LACTATED RINGERS 500 ML 999 ML IV (01:27)
[2023-11-22] MEDS: fentaNYL-bupivacaine (epidural) 100 ML BAG EPIDURAL (03:14)
[2023-11-22] MEDS: Ondansetron 4 MG/2 ML Vial IV ×2 (03:20→11:27)
[2023-11-22] MEDS: Acetaminophen 500 MG Tablet PO (05:24)
[2023-11-22] MEDS: Sodium Citrate/Citric Acid 30 ML UDC PO (05:25)
[2023-11-22] MEDS: Cefazolin 2 GM in 0.9% Normal Saline (100mL Bag) 100 ML IV (05:45)
--- NOTE | 2023-11-22 05:45 | PCM.PN.BLA ---
Progress Note pt is sitting up in bed and requesting a section. pit is now at 24 mu/min current tracing: FHT: minimal to Moderate variability at times with occasional small variable decels, reactive no decelerations currently, currently category I tracing [place]: q2-3 min Contractions cx: 7.5/80/0 (unchanged x 6 hours) reviewed tracing abnormalities since last note: more minimal variability A/P: low urine output pre-eclampsia with intermittent headaches, required 200 mg labetalol around 11 pm last night failure to progress despite max pitocin maternal exhaustion plan for primary section now.
--- NOTE | 2023-11-22 06:06 | PLAC_PTH ---
PATIENT: ROYER PALACIOS LOC: [facility] U#:[id number] AGE/SX: 28/F [facility]: Dr. Loretta Mosqueda DO : 1995 BED: 1 DIS: 11/24/2023 SPEC #: [id number] RECD: 11/22/23 08:49 STATUS: ADELAIDA APOLLO #: [id number] DANA: 11/22/23 06:[address]: Loretta Mosqueda DEPT: SURGICAL PATHOLOGY RECD BY: Aide Chnadler ENTERED: 11/22/23 12:09 SP TYPE: PLACENTA OTHR DR: No Primary Care Phys Tissues: Placenta, NOS Procedures: Surgery Specimen Level V HEADER OPERATION: section PRE-OP DIAGNOSIS: Delivery TISSUE SUBMITTED: Placenta MICROSCOPIC DIAGNOSIS Placenta: Placental disc - third trimester placenta (554 gm). - Multiple areas of infarction (largest measuring 1.5cm in greatest dimension). - Focal areas of intraparenchymal hemorrhage. - Focal increased intervillous and perivillous fibrin deposition. - Focal acute vasculitis of sub-amniotic blood vessels. Membranes - Moderate acute chorioamnionitis. Umbilical cord - three blood vessels and moderate acute funisitis. SJ: 11/26/23 MICROSCOPIC DESCRIPTION Slides are reviewed. GROSS DESCRIPTION SPECIMEN: PLACENTA / CLINICAL INFORMATION: A. Weight: 3.285 kg B. Gestational Age: 37 weeks C. Sex: Male PLACENTAL WEIGHT (POST FIXATION): 554 gm PLACENTAL DIMENSIONS: 22.0 x 19.0 x 3.5 cm PLACENTAL SHAPE: Usual ovoid PLACENTAL WEIGHT FOR GESTATIONAL AGE: >99 percentile. MEMBRANES - Present A. Insertion: Marginal B. Site of rupture from edge: 2.5 cm from edge of placental disc C. Color of membrane: [place]-laws D. Abnormalities: None UMBILICAL CORD - Present A. Color: [place]-laws B. Insertion: Centrally C. Length: 28.0 cm D. Diameter: 1.4 cm E. Number of vessels: Three F. Abnormalities: A few false knots are noted PLACENTAL DISC - Present A. Color of surface: [place]-laws B. surface abnormalities: None C. Maternal cotyledons: Intact with minimal tears D. Attached retro placental clot: No clot E. Cut surface: Dark red and spongy F. Lesions: Sections reveal multiple atwood-indurated areas. Largest measuring 1.5cm in greatest dimension. Maternal surface also shows a plaque like area. G. Separate clot: Multiple blood clots are noted weighing in aggregate 32gm and measures in aggregate 7.0 x 8.0 x 2.0cm SECTIONS SUBMITTED: 1. Membrane roll 2. Cord, maternal end 3. Cord, end, also contains false knot 4. Placental disc, and maternal surfaces, lesion 5. Placental disc, and maternal surfaces, lesion 6. Placental disc, and maternal surfaces, lesion 7. Placental disc, and maternal surfaces, lesion 8. Placental disc, and maternal surfaces, lesion 9. Placental disc, and maternal surfaces, lesion. 10. Placental disc, and maternal surfaces, plaque like area on maternal surface. JOSE ANTONIO/mr 11/23/23 TC:2 CPT: 03610
--- NOTE | 2023-11-22 06:43 | OP.PCM_ITS ---
Assessment & Plan (1) Pre-eclampsia affecting , antepartum: COMMENT: IOL at 37.4 weeks (2) History of recurrent miscarriages: COMMENT: APL panel negative (3) Obesity: QUALIFIERS: Obesity type: unspecified obesity type Obesity classification: unspecified obesity classification Serious obesity comorbidity presence: without serious comorbidity Qualified Code(s): E66.9 - Obesity, unspecified COMMENT: BMI 40, passed early GCT, encouraged healthy weight gain. recommend weekly nsts after 34 weeks and growth US q 4 weeks (4) : QUALIFIERS: Weeks of gestation: 37 weeks Qualified Code(s): Z3A.37 - 37 weeks gestation of COMMENT: GBS neg, visualized anatomy nl, NIPT low risk, declined afp and carrier (5) Supervision of high risk , antepartum: COMMENT: PRR BRYANT 12/07/23 boy Nathan Spouse Yariel (6) Failure to progress in first stage of labor: Maternal Data Information BRYANT Calculator Estimated Delivery Date Method Current WG Current Estimate 12/07/23 LMP (Certain) 37w 6d Other Estimates 12/12/23 Ultrasound #1 37w 1d Gestational age: 37w 6d Details Operative Information Date of Procedure: 11/22/23 Pre-Operative Diagnosis: 28y/o @ 37 weeks 6 days, pre-eclampsia, failure to progress Post-Operative Diagnosis: 28y/o @ 37 weeks 6 days, pre-eclampsia, failure to progress Classification: CARINA Procedure Type: low transverse medication reconciliation technician #1: Nhung Bajwa Type of Anesthesia: Epidural Anesthesiologist: De Grider Antibiotic Given: Ancef 2 grams IV x1 and Zithromax 500 mg/5 mL X1 Drain: Darden to straight drain Estimated Blood Loss: 400cc Procedure Start Time: 06:01 Procedure Stop Time: 06:37 Time of Delivery: 06:06 Findings Description of Procedure: The patient was brought to OR where epidural anesthesia was found to be adequate. Darden catheter was in place and somewhat bloody. The patient was placed in the dorsal supine position with leftward tilt. Patient was prepped and draped in the normal sterile fashion. Pfannenstiel skin incision was made with the scalpel and carried through to the underlying layer of fascia with the scalpel. Fascia was nicked in the midline and the incision extended laterally. The rectus bellies were dissected off superiorly and inferiorly with out complication both sharply and bluntly. The peritoneum was entered digitally. The incision was stretched and a low transverse uterine incision was made with the scalpel. The infant's head was delivered atraumatically followed by the anterior and posterior shoulders without complication the rest of the delivered. The cord was clamped and cut and the was handed off to awaiting nurse. The placenta was delivered spontaneously immediately following and was noted to be intact and have a three-vessel cord. The uterus was exteriorized cleared of all clots and debris, and the incision was closed in a double layer closure using #1 Vicrul and #1 Monocryl. The ovaries and fallopian tubes were noted to be within normal limits. The uterus was returned to the maternal abdomen and gutters were cleared of all clots and debris. The peritoneum was closed with 3-0 Monocryl in a running fashion. Gloves were changed prior to fascial closure. Fascia was closed with 0 PDS in a running fashion. Subcutaneous tissue was copiously irrigated and the skin was closed with 3-0 Monocryl in a subcuticular fashion. Mepilex dressing was applied without complication. Patient was taken to recovery in stable condition. It was discussed with the patient that based on the clinical information obtained during this encounter, combined with her history, at this time I would recommend either or rpt for future deliveries if further pregnancies are desired. Presentation: Positive for Vertex Amniotic Membrane Rupture Type: Artificial Time of Membrane Ruptured: 1200 11/21/23 Amniotic Fluid Description: Clear Placental Delivery Description: Manual Removal Placenta Disposition: [facility] Cord Vessel Description: 3 Vessels Cord Entanglement: Around neck x 1, loose Infant A Gender: Male (1 minute): 9 (5 minute): 9 Delayed Cord Clamping: Yes Complications Risks of Surgery Discussed w/Patient: Bleeding, Anesthesia Risks, Need for Future C-Sections and Injury to surrounding structure(s) including bowel and bladder Multi Select Codes Urinary/Genital Urinary/Genital CPT Codes: 42919 Delivery [facility]
[2023-11-22] MEDS: Carboprost Tromethamine 250 MCG/ML Ampul IM (06:48)
[2023-11-22] MEDS: miSOPROStol 200 MCG Tablet 1000 MCG RC (06:48)
[2023-11-22] MEDS: Azithromycin 500 MG in Dextrose 5%-Water (250mL Bag) 250 ML 250 MG IV (07:09)
[2023-11-22] MEDS: Oxytocin 15 Units/NS 250ml 15 UNITS/250 ML IV.SOLN 83 UNITS IV (07:10)
[2023-11-22] MEDS: Loperamide 2 MG Capsule PO (07:10)
[2023-11-22] MEDS: proCHLORPERazine 10 MG/2 ML Vial IV (07:28)
[2023-11-22] MEDS: Lactated Ringers 1,000 ML 100 ML IV (08:10)
[2023-11-22] MEDS: Ketorolac 15 MG/ML Vial IV ×3 (08:33→20:31)
[2023-11-22 08:47] LABS: Pathology Specimen OB SEE PATHOLOGY REPORT
[2023-11-22] MEDS: Labetalol 200 MG Tablet PO ×2 (08:55→20:31)
[2023-11-22] MEDS: Furosemide 20 MG/2 ML VIAL IV (09:07)
[2023-11-22] MEDS: Senna/Docusate Sodium 1 Tablet PO (10:14)
[2023-11-22] MEDS: Acetaminophen 500 MG Tablet 1000 MG PO ×2 (13:12→18:35)
[2023-11-22] MEDS: Prenatal Vits Tablet 1 TABLET PO (13:12)
[2023-11-22] MEDS: Enoxaparin 40 MG/0.4 ML Syringe SC (20:30)
[2023-11-23] VITALS (8 sets, daily range): BP systolic 124–147; BP diastolic 72–86; PULSE 76–100; RESP 16–18; TEMP 35.9–36.2; O2SAT 96–99
[2023-11-23] MEDS: Acetaminophen 500 MG Tablet 1000 MG PO ×4 (00:31→18:15)
[2023-11-23] MEDS: Lactated Ringers 500 ML IV.SOLN. 1000 ML IV (03:53)
[2023-11-23 04:34] LABS: Hematocrit 28.6 % (37-47); Hemoglobin 9.3 g/dL (12.0-15.0); Mean Corp Hgb Conc 32.5 g/dL (32-36); Mean Corpuscular Hgb 26.5 pg (27.0-32.0); Mean Corpuscular Volume 81.5 fL (81-99); Mean Platelet Vol. 12.1 fl (6.2-12.0); Platelet Count 138 K/mm3 (150-450); RBC Distribution Width CV 13.2 % (11.6-14.6); RBC Distribution Width SD 38.6 fl (35.1-43.9); Red Blood Count 3.51 M/mm3 (4.2-5.4); White Blood Count 10.8 K/mm3 (4.4-11.0)
[2023-11-23] MEDS: Naproxen 500 MG Tablet PO ×3 (06:53→22:56)
--- NOTE | 2023-11-23 07:54 | PN.OBGYN_ITS ---
Subjective Subjective Patient doing well without complaints. Tolerating PO. Ambulating and voiding without difficulty. feeding well. Denies chest pain, shortness of breath, calf pain/swelling, fevers, chills, lightheadedness. Objective Data Objective Data Vital Signs: Vital Signs Temp Pulse Resp BP Pulse Ox O2 Del Method 97 F L 100 16 134/76 H 98 Room Air 11/23/23 04:35 11/23/23 06:08 11/23/23 06:08 11/23/23 04:35 11/23/23 06:08 11/23/23 06:08 Oxygen Delivery Method Room Air Weight: 226 lb Body Mass Index (BMI) 42.7 Intake & Output: Intake and Output for Last 24 Hours 11/21/23 11/22/23 11/23/23 23:59 23:59 23:59 Intake Total 3507.40 / 3507.40 3150.73 / 3150.73 Output Total 800 / 800 2050 / 2050 500 / 500 Balance 2707.40 / 2707.40 1100.73 / 1100.73 -500 / -500 Lab / Micro Data 11/23/23 04:20 11/20/23 16:40 Labs: Laboratory Results - last 24 hr 11/23/23 04:20: WBC 10.8, RBC 3.51 L, Hgb 9.3 L, Hct 28.6 L, MCV 81.5, MCH 26.5 L, MCHC 32.5, RDW Std Deviation 38.6, RDW Coeff of Dominique 13.2, Plt Count 138 L, MPV 12.1 H ROS Constitutional Constitutional: Reports systems reviewed and no addt'l complaints, except as doc umented Cardiovascular Cardiovascular: Reports systems reviewed and no addt'l complaints, except as documented Respiratory/Chest Respiratory/Chest: Reports systems reviewed and no addt'l complaints, except as documented Gastrointestinal Gastrointestinal: Reports systems reviewed and no addt'l complaints, except as documented Physical Exam Const alert, oriented x3 and no apparent distress HEENT Head and Scalp: atraumatic Resp normal respiratory effort GI soft to palpation and non-tender Inspection: incision intact, healing well and drainage (none) Bimanual Exam - Vag & Uterus: uterus non-tender Uterus Palpation: uterus fundus firm (below Umbilicus) Assessment & Plan (1) delivery delivered: PLAN: Plan s/p LTCS PPD # 1 1. routine post care 2. breast feeding- support given 3. rh positive 4. rubella immune preeclampsia- repeat labs today diuresing well
[2023-11-23] MEDS: Labetalol 200 MG Tablet PO ×2 (09:49→21:35)
[2023-11-23] MEDS: Senna/Docusate Sodium 1 Tablet PO (09:49)
[2023-11-23] MEDS: 0.9% Saline Lock 10 ML Syringe IV (09:50)
[2023-11-23 12:06] LABS: ALB/GLOB Ratio 0.6 RATIO (0.9-2.4); AST(SGOT) 31 U/L (15-37); Alanine Aminotransfer ALT/SGPT 17 U/L (13-56); Albumin, Serum 2.2 g/dL (3.2-5.0); Alkaline Phosphatase 140 U/L (45-117); Anion Gap 6 (5-15); BUN 15 mg/dL (7-18); BUN/Creat Ratio 15.2 RATIO (10-20); Calcium,Total 8.8 mg/dL (8.5-10.1); Chloride 106 mmol/L (98-107); Creatinine, Serum 0.98 mg/dL (0.55-1.02); EST Glomerular Filtration Rate 71 mL/min (>60); Est Glom Filt Rate - Afr Amer 86 mL/min (>60); Estimated Creatinine Clearance 93.18 ml/min; Globulin 3.8 g/dL (2.2-4.2); Glucose 75 mg/dL (74-106); Sodium Level 134 mmol/L (136-145)
[2023-11-23] MEDS: Prenatal Vits Tablet 1 TABLET PO (12:10)
[2023-11-23] MEDS: Enoxaparin 40 MG/0.4 ML Syringe SC (21:35)
[2023-11-24] MEDS: Acetaminophen 500 MG Tablet 1000 MG PO ×2 (00:31→06:35)
[2023-11-24 02:20] VITALS: BP 132/88; PULSE 89; RESP 16; TEMP 36.2; O2SAT 97
[2023-11-24] MEDS: Naproxen 500 MG Tablet PO (06:35)
[2023-11-24 08:15] VITALS: BP 142/88; PULSE 79; RESP 18; TEMP 36.3; O2SAT 97
[2023-11-24] MEDS: Labetalol 200 MG Tablet PO (09:18)
[2023-11-24] MEDS: Prenatal Vits Tablet 1 TABLET PO (09:18)
[2023-11-24] MEDS: Senna/Docusate Sodium 1 Tablet PO (09:18)
--- NOTE | 2023-11-24 09:51 | PCM.PN.OB ---
Subjective Subjective Patient doing well without complaints. Tolerating PO. Ambulating and voiding without difficulty. feeding well. Denies chest pain, shortness of breath, calf pain/swelling, fevers, chills, lightheadedness. Objective Data Objective Data Vital Signs: Vital Signs Temp Pulse Resp BP Pulse Ox O2 Del Method 97.3 F L 79 18 142/88 H 97 Room Air 11/24/23 08:15 11/24/23 08:15 11/24/23 08:15 11/24/23 08:15 11/24/23 08:15 11/24/23 08:15 Oxygen Delivery Method Room Air Weight: 226 lb Body Mass Index (BMI) 42.7 Intake & Output: Intake and Output for Last 24 Hours 11/22/23 11/23/23 11/24/23 23:59 23:59 23:59 Intake Total 3150.73 / 3150.73 550 / 550 Output Total 2049 / 2049 1250 / 1250 Balance 1100.73 / 1100.73 -700 / -700 Lab / Micro Data 11/23/23 04:20 11/23/23 11:25 Labs: Laboratory Results - last 24 hr 11/23/23 11:25: Sodium 134 L, Potassium 4.0, Chloride 106, Carbon Dioxide 22.0, Anion Gap 6, BUN 15, Creatinine 0.98, Estim Creat Clear Calc 93.18, Est GFR (MDRD) Af Amer 86, Est GFR (MDRD) Non-Af 71, BUN/Creatinine Ratio 15.2, Glucose 75, Calcium 8.8, Total Bilirubin 0.40, AST 31, ALT 17, Alkaline Phosphatase 140 H, Total Protein 6.0 L, Albumin 2.2 L, Globulin 3.8, Albumin/Globulin Ratio 0.6 L ROS Constitutional Constitutional: Reports systems reviewed and no addt'l complaints, except as documented Cardiovascular Cardiovascular: Reports systems reviewed and no addt'l complaints, except as documented Respiratory/Chest Respiratory/Chest: Reports systems reviewed and no addt'l complaints, except as documented Gastrointestinal Gastrointestinal: Reports systems reviewed and no addt'l complaints, except as documented Physical Exam Const alert, oriented x3 and no apparent distress HEENT Head and Scalp: atraumatic Resp normal respiratory effort GI soft to palpation and non-tender Inspection: incision intact, healing well and drainage (none) Bimanual Exam - Vag & Uterus: uterus non-tender Uterus Palpation: uterus fundus firm (below Umbilicus) Assessment & Plan (1) delivery delivered: PLAN: Plan s/p LTCS PPD # 1 1. routine post care 2. breast feeding- support given 3. rh positive 4. rubella immune
[2023-11-24] MEDS: Labetalol 100 MG Tablet PO (10:33)
[2023-11-24 11:03] VITALS: BP 146/97
[2023-11-24 11:52] VITALS: BP 140/77; PULSE 67; RESP 18
--- NOTE | 2023-12-03 08:58 | PCM.DC.SUM ---
Providers Date of Admission: 11/20/23 Primary Care Physician: No Primary Care Phys Reason For Visit: PRIMARY Diagnosis Discharge Diagnosis (1) delivery delivered: Status: Inactive Code(s): O82 - Encounter for delivery without indication Plan s/p LTCS PPD # 1 1. routine post care 2. breast feeding- support given 3. rh positive 4. rubella immune Medications at Discharge Home Medications PNV 153-FA 400 mcg-om3 35 mg-dha 25 mg-epa 5 mg-fish oil chew tablet ( Gummies) 2 tab PO QHS 11/20/23 labetalol 300 mg tablet 300 mg PO BID blood pressure #60 tabs 11/24/23 naproxen 500 mg tablet 500 mg PO BID PRN PRN Pain #30 tabs 11/24/23 nifedipine 30 mg tablet,extended release 24 hr (Procardia XL) 30 mg PO DAILY blood pressure #30 tabs 11/26/23 acetaminophen 325 mg tablet (Pain Relief (acetaminophen)) 1,000 mg PO Q6H PRN pain 11/27/23 Hospital Course Summary of Care Provided Hospital Course: patient presented for IOL and had an arrest of dilation, underwent primary csection. Postoperatively patient had return of bowel and bladder function and was ambulating well, tolerating adequate p.o., and was stable for discharge to home on postop day #2. bps were mildly elevated so patient was discharged home on labetalol as well as Discharge medications naproxen and Percocet. Follow-up in office in 1 week for bp check, 2 weeks for incision check in 6 weeks for visit. preeclampsia precautions reviewed. Routine post section diet and activity instructions. Weight / BMI Weight Weight: 226 lb Body Mass Index (BMI) 42.7 ABG / Lab / Microbiology Data 11/23/23 04:20 11/23/23 11:25 D/C Instructions Discharge Diet: No restrictions Discharge Activity: May Not Drive (for 2 weeks or while taking narcotic pain medications.), May Shower and May Take a Tub Bath (in 7 days) May shower in (days): 0 May resume sexual activity in: 4-6 weeks Weight Bearing Status: Full weight bearing Call your doctor if your incision/area has: Continuous Slow Oozing, Sudden Increased Bleeding, Increased Pain/ Swelling, Increased Redness and Foul Smelling Discharge Call your doctor if you observe: Fever of 101 or Higher and Using more than 1 pad per hour (for 2 hours) Suture Line Care: Avoid Pulling/Pushing and Avoid Pinching/Bending Cleanse incision/area with: Soap & Water and Keep Dressing Clean & Dry Please Follow Up With: Chayito Pompa MD When: Call [phone] to make an appointment for an incision check in 1-2 weeks. Meaningful Use Info Meaningful Use Diagnoses (Choose all that apply): None applicable Discharge Plan Admission Admit Date/Time: 11/20/23 17:10 Attending Provider: Loretta Mosqueda Primary Care Provider: Dean Physician,Nickie Primary Instructions Patient Instructions: After a Discharge Orders/Prescriptions Prescriptions: New labetalol 300 mg tablet 300 mg PO BID Qty: 60 2RF naproxen [naproxen] 500 mg tablet 500 mg PO BID PRN PRN (Reason: Pain) Qty: 30 1RF No Action Gummies 400 mcg-35 mg- 25 mg-5 mg tablet,chewable 2 tab PO QHS acetaminophen [Pain Relief (acetaminophen)] 325 mg tablet 1,000 mg PO Q6H PRN (Reason: pain) nifedipine [Procardia XL] 30 mg tablet extended release 24hr 30 mg PO DAILY Qty: 30 3RF Referrals / Follow Up: Care Physician,No Primary [Primary Care Provider] - Disposition Disposition (needs filled in before D/C Order can be placed): Home, Self Care
== END 2023-11-24 12:25 | disposition home or self-care (01) | DRG 788 ==
LOC: WPOUT 17:14 → WP 17:14
PROVIDERS: Advanced Practice Midwife; Obstetrics & Gynecology; Admitting Provider Obstetrics & Gynecology; Referring Provider Obstetrics & Gynecology; Visit Provider Obstetrics & Gynecology
DX: O14.14 Severe pre-eclampsia complicating childbirth (principal); O26.23 Pregnancy care for patient with recurrent pregnancy loss, third trimester; O99.214 Obesity complicating childbirth; O69.81X0 Labor and delivery complicated by cord around neck, without compression, not applicable or unspecified; O76 Abnormality in fetal heart rate and rhythm complicating labor and delivery; O75.81 Maternal exhaustion complicating labor and delivery; Z37.0 Single live birth; Z3A.37 37 weeks gestation of pregnancy
CPT/HCPCS: 36415; 59025; 59050; 80053; 82565; 82570; 84156; 84450; 84460; 84550; 85027; 86780; 86850; 86900; 86901; 88307; 99221; J7120; A4216; G0378; J1940; J2405

== ENCOUNTER 2023-11-27 00:05 | Inpatient (IN) | payer OTHER, SELFPAY ==
[2023-11-27] VITALS (51 sets, daily range): BP systolic 119–163; BP diastolic 76–97; PULSE 57–92; RESP 16–28; TEMP 36.1–37.1; O2SAT 96–100; BMI 41.7; BMI 40.6
--- NOTE | 2023-11-27 00:41 | RAD_ITS ---
INDICATION: dyspnea EXAMINATION/TECHNIQUE: X-RAY - XR Chest 1 View COMPARISON: No relevant prior comparison study available FINDINGS: LINES/DEVICES: None. LUNGS: The lungs are well expanded. No consolidation, edema or effusion. No pneumothorax. MEDIASTINUM AND CARDIOVASCULAR STRUCTURES: Cardiac silhouette not enlarged. Central airways and mediastinal contour are unremarkable. BONES AND SOFT TISSUES: No acute osseous abnormalities. RAD/Chest 1 View (Portable) IMPRESSION: No acute pulmonary finding. Electronically Signed: Kahlil Mejia MD at 2:15 EDT ,
--- NOTE | 2023-11-27 00:41 | EKG12_ITS ---
Test Reason : SOB Blood Pressure : / mmHG Vent. Rate : 074 BPM Atrial Rate : 074 BPM P-R Int : 152 ms QRS Dur : 080 ms QT Int : 376 ms P-R-T Axes : 051 054 029 degrees QTc Int : 417 ms Normal sinus rhythm Borderline Nonspecific T wave abnormality Borderline Confirmed by Lyndon Jackson ([id number]), tape editor NADIA MCGEE ([id number]) on 11/28/2023 5:46:53 AM Referred By: ROSEANN Confirmed By:Lyndon Jackson
--- NOTE | 2023-11-27 01:05 | EDS_ITS ---
HPI History of Present Illness Chief Complaint: Shortness of Breath Informant: patient and spouse/S.O. Narrative Narrative: 28-year-old female presenting to the emergency room with hypertension dyspnea. Patient is day 5. She states that she developed hypertension during the last couple weeks of her and was induced. She states she labored for about 24 hours and was taken for . She states that since arriving home her blood pressures continue to be elevated and she was started on labetalol taking first dose tonight. She noticed increased leg swelling. She has had some right upper quadrant discomfort which she describes as burning more along the ribs than on the abdomen. She notes that tonight she felt short of breath particularly with laying down. She is a patient of [facility]. [facility] Medical History Pre-eclampsia Home Medications PNV 153-FA 400 mcg-om3 35 mg-dha 25 mg-epa 5 mg-fish oil chew tablet ( Gummies) 2 tab PO QHS 11/20/23 [History Last Taken 11/19/23 21:00 2 tabs] doxylamine succinate 25 mg tablet (Nighttime Sleep-Aid (doxylamine)) 25 mg PO QHS PRN insomnia 11/20/23 [History Last Taken 11/18/23 22:00 25 mg] famotidine 20 mg tablet (Pepcid) 20 mg PO Q24H PRN reflux 11/20/23 [History Last Taken 11/18/23 21:00 20 mg] labetalol 300 mg tablet 300 mg PO BID #60 tabs 11/24/23 [Rx Last Taken Unknown] naproxen 500 mg tablet 500 mg PO BID PRN PRN Pain #30 tabs 11/24/23 [Rx Last Taken Unknown] oxycodone-acetaminophen 5 mg-325 mg tablet (Percocet) 1 tab PO Q6H PRN pain 7 days #20 tabs 11/24/23 [Rx Last Taken Unknown] nifedipine 30 mg tablet,extended release 24 hr (Procardia XL) 30 mg PO DAILY #30 tabs 11/26/23 [Rx Last Taken Unknown] Allergy/AdvReac Type Severity Reaction Status Date / Time No Known Allergies Allergy Verified 11/20/23 17:01 Family History Mother Thyroid disorder Father Bleeding disorder unknown name Surgical History H/O dilation and curettage Hx of tonsillectomy Previous section Social History adopted: No household members: spouse current occupational status: employed current occupation: [employer] pets and animals: Yes pets and animals: cat(s) history of recent travel: No sexually active: Yes Smoking Status: Never smoker alcohol intake: never substance use type: does not use caffeine: No seatbelt use: always do you feel safe at home: Yes additional social history: Yariel RIVERA MIGUEL ED Constitutional Constitutional ED: Denies chills, fever(s) or weight loss Eyes Eyes: Denies change in vision or diplopia ENT ENT ED: Denies ear pain, rhinorrhea or sore throat Cardiovascular Cardiovascular: Reports orthopnea and palpitations; Denies chest pain or racing heartbeat Respiratory/Chest Respiratory/Chest: Reports dyspnea and orthopnea; Denies cough Gastrointestinal Gastrointestinal: Reports abdominal pain; Denies diarrhea, nausea or vomiting Genitourinary Genitourinary ED: Denies dysuria, hematuria or urinary frequency Musculoskeletal Musculoskeletal: Reports other Details: bilateral leg swelling ; Denies arthralgias or myalgias Integumentary Denies abscess or rash Neurologic Neurologic: Denies headache(s) or weakness Psychiatric Psychiatric: Denies anxiety, depression, suicidal ideation or suicidal thoughts Endocrine Endocrinology: Denies polydipsia, polyphagia or polyuria Allergic/Immunologic Allergic/Immunologic ED: Denies mouth swelling, tongue swelling or urticaria EXAM Physical Exam Const Vital Signs: 11/27/23 00:06 11/27/23 00:14 11/27/23 02:05 Temperature 98.3 F Temperature Source Oral Pulse Rate 81 69 Respiratory Rate 16 18 Respiratory Effort Normal Non-Labored Respiratory Depth Normal Respiratory Pattern Normal Blood Pressure 161/92 H Blood Pressure Mean 115 Pulse Ox 97 97 Oxygen Delivery Method Room Air Room Air Room Air 11/27/23 02:40 11/27/23 01:35 11/27/23 01:45 Temperature Temperature Source Pulse Rate 65 72 64 Respiratory Rate 20 H 26 H 17 Respiratory Effort Respiratory Depth Respiratory Pattern Blood Pressure 157/89 H 151/93 H Blood Pressure Mean 111 110 Pulse Ox 97 97 99 Oxygen Delivery Method Room Air 11/27/23 02:00 11/27/23 02:15 11/27/23 02:30 Temperature Temperature Source Pulse Rate 65 59 L 57 L Respiratory Rate 16 26 H 25 H Respiratory Effort Respiratory Depth Respiratory Pattern Blood Pressure 148/87 H 139/89 H 157/89 H Blood Pressure Mean 104 105 108 Pulse Ox 96 97 Oxygen Delivery Method 11/27/23 02:48 11/27/23 02:50 11/27/23 03:00 Temperature Temperature Source Pulse Rate 74 75 69 Respiratory Rate 17 28 H 27 H Respiratory Effort Respiratory Depth Respiratory Pattern Blood Pressure 142/77 H 137/86 H Blood Pressure Mean 96 102 Pulse Ox 98 98 97 Oxygen Delivery Method 11/27/23 03:15 11/27/23 03:30 11/27/23 04:38 Temperature Temperature Source Pulse Rate 65 66 60 Respiratory Rate 24 H 25 H 27 H Respiratory Effort Respiratory Depth Respiratory Pattern Blood Pressure 143/83 H 153/83 H 163/92 H Blood Pressure Mean 101 104 115 Pulse Ox 98 98 96 Oxygen Delivery Method Room Air 11/27/23 04:45 11/27/23 06:00 11/27/23 06:57 Temperature 98.7 F 98.1 F Temperature Source Oral Pulse Rate 64 67 Respiratory Rate 18 18 Respiratory Effort Respiratory Depth Respiratory Pattern Blood Pressure 148/84 H 162/95 H Blood Pressure Mean 105 117 Pulse Ox 96 98 Oxygen Delivery Method MDM MDM MDM Narrative Medical decision making narrative: Differential diagnosis is including but not limited to congestive heart failure, preeclampsia, liver dysfunction, pulmonary embolism, ACS, pneumonia, anemia. EKG is normal sinus rhythm. My independent interpretation of the chest x-ray is no acute process. White count 6.9. Hemoglobin is 8.8 which is stable for the patient. Platelet count 226. INR is 1.0 with a PTT of 26. Fibrinogen elevated 550. BMP shows a creatinine 0.66 potassium 3.7 glucose of 103 lactic acid 0.9 uric acid 4.8 magnesium 2.1 LDH 206 troponin 17. Urinalysis shows 50-100 white cells 5-10 red blood cells 0 bacteria 0-5 squamous cells 30 protein. Patient has received 2 doses of labetalol 20 mg. Current blood pressure 147/84. Right upper quadrant is nontender on repeat examination. I spoke with Dr. Marlow from obstetrics. We obtained a CTA of the chest which does not demonstrate any pulmonary embolism. There was noted to have minimal interstitial pulmonary edema in the lower lungs and trace bilateral pleural effusions. I called Dr. Marlow back with the results and the plan is admission to [facility]. History & Record Review Discussion w/independent historian: Patient, Family and Significant other Lab Data Attestation: I reviewed the patient's lab results. Labs: Laboratory Results - last 24 hr 11/27/23 11/27/23 01:09 02:48 WBC 6.9 RBC 3.34 L Hgb 8.8 L Hct 28.5 L MCV 85.3 MCH 26.3 L MCHC 30.9 L RDW Std Deviation 41.9 RDW Coeff of Dominique 13.4 Plt Count 226 MPV 10.9 Immature Gran % (Auto) 2.000 H Neut % (Auto) 69.8 Lymph % (Auto) 19.6 [place] % (Auto) 6.9 Eos % (Auto) 1.3 Baso % (Auto) 0.4 Absolute Neuts (auto) 4.8 Absolute Lymphs (auto) 1.34 Nucleated RBC % 0 PT 13.2 INR 1.0 APTT 26.3 Fibrinogen 550 H Sodium 143 Potassium 3.7 Chloride 113 H Carbon Dioxide 23.0 Anion Gap 7 BUN 9 Creatinine 0.66 Estim Creat Clear Calc 136.44 Est GFR (MDRD) Af Amer 136 Est GFR (MDRD) Non-Af 112 BUN/Creatinine Ratio 13.6 Glucose 103 Lactic Acid 0.9 Uric Acid 4.8 Calcium 8.5 Magnesium 2.1 Lactate Dehydrogenase 206 Troponin I High Sens 17 Lipase 20 Urine Color Yellow Urine Clarity Clear Urine pH 7.0 Ur Specific [place] 1.010 Urine Protein 30 H Urine Glucose (UA) Normal Urine Ketones Negative Urine Occult Blood 250 H Urine Nitrite Negative Urine Bilirubin Negative Urine Urobilinogen Normal Ur Leukocyte Esterase 500 H Urine RBC 5-10 SEEN Urine WBC 50-100 SEEN Ur Squamous Epith Cells 0-5 SEEN Urine Bacteria 0 SEEN Urine Mucus 0 SEEN Ur Random Sodium 102 Urine Creatinine 108.00 Radiography Diagnostic Testing: Clinical Impression(s) from Imaging Studies Chest X-Ray 11/27/23 00:41 IMPRESSION: No acute pulmonary finding. Electronically Signed: Kahlil Mejia MD at 2:15 EDT , EKG Initial EKG: Attestation: I personally reviewed and interpreted this EKG as follows: Comments: Normal sinus rhythm ventricular rate of 74 bpm. Management Discussion w/another healthcare provider: [facility] [facility] Discharge Plan Triage Chief Complaint: Shortness of Breath ED Provider: Faustino Mukherjee Dx/Rx/DC Orders Prescriptions: No Action Gummies 400 mcg-35 mg- 25 mg-5 mg tablet,chewable 2 tab PO QHS Nighttime Sleep-Aid (doxylamn) 25 mg tablet 25 mg PO QHS PRN (Reason: insomnia) famotidine [Pepcid] 20 mg tablet 20 mg PO Q24H PRN (Reason: reflux) labetalol 300 mg tablet 300 mg PO BID Qty: 60 2RF oxycodone-acetaminophen [Percocet] 5-325 mg tablet 1 tab PO Q6H PRN (Reason: pain) 7 Days Qty: 20 0RF naproxen [naproxen] 500 mg tablet 500 mg PO BID PRN PRN (Reason: Pain) Qty: 30 1RF nifedipine [Procardia XL] 30 mg tablet extended release 24hr 30 mg PO DAILY Qty: 30 3RF Primary Care Provider: Care Physician,No Primary Referrals: Care Physician,No Primary [Primary Care Provider] -
[2023-11-27] MEDS: Labetalol (Prefilled) 20 MG/4 ML IV ×2 (01:12→02:37)
[2023-11-27 01:23] LABS: Absolute Lymphocyte Count 1.34 X10^3/uL (0.83-4.51); Absolute Neutrophil Count 4.8 X10^3/uL (2.0-7.7); Basophil# 0.03 X10^3/uL; Basophil% 0.4 % (0-1); Eosinophil# 0.09 X10^3/uL; Eosinophils% 1.3 % (0-5); Hematocrit 28.5 % (37-47); Hemoglobin 8.8 g/dL (12.0-15.0); Lymphocyte # 1.34 X10^3/ul (0.83-4.51); Lymphocyte % 19.6 % (19-41); Mean Corp Hgb Conc 30.9 g/dL (32-36); Mean Corpuscular Hgb 26.3 pg (27.0-32.0); Mean Corpuscular Volume 85.3 fL (81-99); Mean Platelet Vol. 10.9 fl (6.2-12.0); Monocyte# 0.47 X10^3/uL; Monocyte% 6.9 % (0-10); NRBC Flagged by Analyzer 0 % (0-5); Neutrophil # 4.78 X10^3/uL (2.7-7.7); Neutrophil % 69.8 % (47-70); Platelet Count 226 K/mm3 (150-450); RBC Distribution Width CV 13.4 % (11.6-14.6); RBC Distribution Width SD 41.9 fl (35.1-43.9); Red Blood Count 3.34 M/mm3 (4.2-5.4); White Blood Count 6.9 K/mm3 (4.4-11.0)
[2023-11-27 01:34] LABS: Prothrombin Time (Protime)PT. 13.2 SECONDS (11.7-14.9)
[2023-11-27 01:36] LABS: Fibrinogen 550 mg/dl (203-444); Partial Thromboplast Time 26.3 Seconds (24.1-36.2)
[2023-11-27 01:42] LABS: Anion Gap 7 (5-15); BUN 9 mg/dL (7-18); BUN/Creat Ratio 13.6 RATIO (10-20); Calcium,Total 8.5 mg/dL (8.5-10.1); Chloride 113 mmol/L (98-107); Creatinine, Serum 0.66 mg/dL (0.55-1.02); EST Glomerular Filtration Rate 112 mL/min (>60); Est Glom Filt Rate - Afr Amer 136 mL/min (>60); Estimated Creatinine Clearance 136.44 ml/min; Glucose 103 mg/dL (74-106); Lipase 20 U/L (13-75); Magnesium 2.1 mg/dL (1.6-2.6); Potassium 3.7 mmol/L (3.5-5.1); Sodium Level 143 mmol/L (136-145); Troponin-I HS 17 pg/mL (3.0-54.0)
[2023-11-27 01:44] LABS: LDH 206 U/L (84-246); Uric Acid 4.8 mg/dL (2.6-6.0)
[2023-11-27 01:45] LABS: Lactic Acid 0.9 mmol/L (0.4-1.9)
[2023-11-27 02:52] LABS: Bacteria 0 SEEN /hpf (None Seen); Mucous, Urine 0 SEEN /hpf (<or=2+)
[2023-11-27 02:53] LABS: Color, Urine Yellow (Yellow); Glucose, Dipstick Normal (Normal); Ketone-Dipstick Negative (Negative); Leukocyte Esterase-Dipstick 500 /ul (Negative); Nitrite-Dipstick Negative (Negative); Occult Blood-Urine 250 /ul (Negative); Protein-Dipstick 30 mg/dl (Negative); Urine Bilirubin Dipstick Negative (Negative); Urine Clarity Clear (Clear); Urine Urobilinogen Normal (Normal)
[2023-11-27 03:01] LABS: Red Blood Cells-Urine 5-10 SEEN /hpf (0-5); Squamous Epithelial Cells - UA 0-5 SEEN /hpf (5-10); White Blood Cells 50-100 SEEN /hpf (0-5)
[2023-11-27 03:06] LABS: Urine Sodium 102 mmol/L (Not Establ.)
--- NOTE | 2023-11-27 04:30 | CT_ITS ---
STUDY: CTA CHEST REASON FOR EXAM: Female, 28 years old. pulmonary embolism RADIATION DOSAGE (If Supplied By Facility): CTDIvol = ( 22.40 ) mGy, DLP = ( 644.1 ) mGycm TECHNIQUE: The examination was performed with the intravenous administration of IV 100mL Isovue-370. Post-processing of the angiographic images was performed, with multiplanar reformation and 3D reconstruction. Individualized dose optimization techniques were used for this CT. COMPARISON: FINDINGS: PULMONARY ARTERIES: Normal enhancement of the main pulmonary artery and right and left pulmonary arteries. Normal enhancement of the bilateral peripheral pulmonary arteries. There is no demonstrated pulmonary embolism. AORTA: Normal thoracic aorta and visualized great vessels. There is no demonstrated aortic dissection. MEDIASTINUM: Normal heart and pericardium. There is no demonstrated mediastinal lymphadenopathy or mediastinal mass lesion. Normal hilar regions. LUNGS/PLEURA: Normal visualized trachea and bronchi. The lungs are well expanded. Minimal interstitial edema evident in the lower lungs. No pneumonitis. Trace bilateral pleural effusions. No pneumothorax. CHEST WALL: Normal chest wall structures. UPPER ABDOMEN: Normal visualized upper abdomen. OSSEOUS STRUCTURES: No acute or suspicious osseous abnormality. CT/CTA Chest W/WO Contrast IMPRESSION: No pulmonary embolism. Minimal interstitial pulmonary edema in the lower lungs, and trace bilateral pleural effusions. Electronically Signed: Kahlil Mejia MD at 5:43 EDT ,
[2023-11-27] MEDS: 0.9% Saline Lock 10 ML Syringe IV ×5 (09:58→21:35)
[2023-11-27] MEDS: Ondansetron 4 MG/2 ML Vial IV (10:18)
[2023-11-27] MEDS: Magnesium Sulfate 4gm/100mL 4 GM/100 ML IV.SOLN. IV (10:26)
[2023-11-27] MEDS: Magnesium Sulfate 20 GM/500 ML BAG IV ×2 (10:54→20:00)
[2023-11-27 11:17] LABS: Hematocrit 30.6 % (37-47); Hemoglobin 9.3 g/dL (12.0-15.0); Mean Corp Hgb Conc 30.4 g/dL (32-36); Mean Corpuscular Hgb 26.1 pg (27.0-32.0); Mean Corpuscular Volume 85.7 fL (81-99); Mean Platelet Vol. 11.1 fl (6.2-12.0); POSITIVE COUNT YES; POSITIVE MORPHOLOGY YES; Platelet Count 278 K/mm3 (150-450); RBC Distribution Width CV 13.2 % (11.6-14.6); RBC Distribution Width SD 41.1 fl (35.1-43.9); Red Blood Count 3.57 M/mm3 (4.2-5.4); White Blood Count 7.3 K/mm3 (4.4-11.0)
[2023-11-27 11:20] LABS: Differential Indicated MANUAL DIFF
[2023-11-27] MEDS: Labetalol 200 MG Tablet 300 MG PO ×2 (11:31→20:36)
[2023-11-27 11:50] LABS: Lymphocyte 24 % (19-41); Metamyelocyte 2 % (0-1); Monocyte 2 % (0-10); Myelocyte 1 % (0-0); Neutrophil-Band 1 % (0-5); Neutrophil-Segmented 70 % (47-70); Platelet Estimate ADEQUATE (ADEQ); Red Cell Morphology NORM C+C NORMAL (NORM C&C); Total Cells Counted 100 (MANUAL DIFF)
[2023-11-27 11:51] LABS: Absolute Lymphocyte Count 1.75 X10^3/uL (0.83-4.51); Absolute Neutrophil Count 5.2 X10^3/uL (2.0-7.7)
--- NOTE | 2023-11-27 13:57 | OB.TRI.NOTE ---
HPI - General General Date of Admission: 11/27/23 HPI Savannah PALACIOS, is a 28 F who presents with preeclampsia exacerbation. she started not feeling well and had tried taking extra meidcine- procardia at home, then had severe range pressures so presented for evaluation. [facility] Medical History (Updated 11/27/23 @ 17:[address] Chayito Pompa MD) delivery delivered Pre-eclampsia Home Medications PNV 153-FA 400 mcg-om3 35 mg-dha 25 mg-epa 5 mg-fish oil chew tablet ( Gummies) 2 tab PO QHS 11/20/23 [History Last Taken 11/26/23] labetalol 300 mg tablet 300 mg PO BID blood pressure #60 tabs 11/24/23 [Rx Last Taken 11/26/23 22:00] naproxen 500 mg tablet 500 mg PO BID PRN PRN Pain #30 tabs 11/24/23 [Rx Last Taken 11/26/23 19:00] nifedipine 30 mg tablet,extended release 24 hr (Procardia XL) 30 mg PO DAILY blood pressure #30 tabs 11/26/23 [Rx Last Taken 11/26/23 22:00] acetaminophen 325 mg tablet (Pain Relief (acetaminophen)) 1,000 mg PO Q6H PRN pain 11/27/23 [History Last Taken 11/26/23 18:00] Allergy/AdvReac Type Severity Reaction Status Date / Time No Known Allergies Allergy Verified 11/27/23 09:43 Family History Mother Thyroid disorder Father Bleeding disorder unknown name Surgical History H/O dilation and curettage Hx of tonsillectomy Previous section Social History adopted: No household members: spouse current occupational status: employed current occupation: [employer] pets and animals: Yes pets and animals: cat(s) history of recent travel: No sexually active: Yes Smoking Status: Never smoker alcohol intake: never substance use type: does not use caffeine: No seatbelt use: always do you feel safe at home: Yes additional social history: Yariel History 3 Elective abortions Hx Para 0 Spontaneous abortions Hx # Term Pregnancies Ectopic pregnancies Hx # Pregnancies Multiple births # of living children 1 Past Pregnancies Del. Date Name GA/Weeks Outcome Route Bth Weight Gen [facility] 07/12/22 spontaneous 11/27/22 spontaneous 11/22/23 Nathan 37 live - full term Male [facility] [place] Physical Exam Const alert, oriented x3 and no apparent distress HEENT Head and Scalp: normocephalic and atraumatic Eyes EOMs intact bilaterally Neck full ROM and no lymphadenopathy Chest inspection of chest normal Resp normal respiratory effort Neuro no focal motor deficits Motor Exam: clonus absent Assessment & Plan (1) Preeclampsia, severe: PLAN: Plan readmit, magnesium started 2g/hr after 4 g bolus. labetalol and procardia given. monitor vitals. patient diuresing well. continue to monitor. Charges/Coding Visit Charges Office Visits / Consults: 51437 OV L3 Est 20min Procedures Urinary/Genital [id number]-59xxx: 39501-81 non-stress test Interp Multi Select Codes Visit Charges Office Visit/Consults: 54516 OV L3 Est 20min
[2023-11-27 14:00] LABS: ALB/GLOB Ratio 0.6 RATIO (0.9-2.4); AST(SGOT) 32 U/L (15-37); Alanine Aminotransfer ALT/SGPT 44 U/L (13-56); Albumin, Serum 2.3 g/dL (3.2-5.0); Alkaline Phosphatase 324 U/L (45-117); Anion Gap 7 (5-15); BUN 6 mg/dL (7-18); BUN/Creat Ratio 10.7 RATIO (10-20); Chloride 114 mmol/L (98-107); Creatinine, Serum 0.56 mg/dL (0.55-1.02); EST Glomerular Filtration Rate 136 mL/min (>60); Est Glom Filt Rate - Afr Amer 165 mL/min (>60); Estimated Creatinine Clearance 158.56 ml/min; Globulin 3.7 g/dL (2.2-4.2); Glucose 93 mg/dL (74-106); Potassium 3.9 mmol/L (3.5-5.1); Sodium Level 143 mmol/L (136-145)
[2023-11-27] MEDS: NIFEdipine 30 MG Tablet PO (21:33)
[2023-11-28] VITALS (20 sets, daily range): BP systolic 112–159; BP diastolic 63–96; PULSE 70–87; RESP 16–18; TEMP 35.8–36.9; O2SAT 96–100
[2023-11-28] MEDS: Labetalol 200 MG Tablet 300 MG PO ×3 (05:04→22:22)
[2023-11-28] MEDS: Magnesium Sulfate 20 GM/500 ML BAG IV (05:36)
[2023-11-28 06:19] LABS: Hematocrit 32.8 % (37-47); Hemoglobin 10.2 g/dL (12.0-15.0); Mean Corp Hgb Conc 31.1 g/dL (32-36); Mean Corpuscular Hgb 26.7 pg (27.0-32.0); Mean Corpuscular Volume 85.9 fL (81-99); Mean Platelet Vol. 10.4 fl (6.2-12.0); Platelet Count 265 K/mm3 (150-450); RBC Distribution Width CV 13.2 % (11.6-14.6); RBC Distribution Width SD 40.7 fl (35.1-43.9); Red Blood Count 3.82 M/mm3 (4.2-5.4); White Blood Count 5.9 K/mm3 (4.4-11.0)
[2023-11-28 07:14] LABS: ALB/GLOB Ratio 0.7 RATIO (0.9-2.4); AST(SGOT) 24 U/L (15-37); Alanine Aminotransfer ALT/SGPT 39 U/L (13-56); Albumin, Serum 2.5 g/dL (3.2-5.0); Alkaline Phosphatase 308 U/L (45-117); Anion Gap 7 (5-15); BUN 5 mg/dL (7-18); BUN/Creat Ratio 7.7 RATIO (10-20); Calcium,Total 7.6 mg/dL (8.5-10.1); Chloride 110 mmol/L (98-107); Creatinine, Serum 0.65 mg/dL (0.55-1.02); EST Glomerular Filtration Rate 115 mL/min (>60); Est Glom Filt Rate - Afr Amer 140 mL/min (>60); Estimated Creatinine Clearance 136.61 ml/min; Globulin 3.7 g/dL (2.2-4.2); Glucose 105 mg/dL (74-106); Potassium 3.7 mmol/L (3.5-5.1); Protein, Total 6.2 g/dL (6.4-8.2); Sodium Level 141 mmol/L (136-145)
[2023-11-28] MEDS: 0.9% Saline Lock 10 ML Syringe IV (11:06)
--- NOTE | 2023-11-28 11:26 | PCM.PN.OB ---
Subjective Subjective patient denies current shortness of breath or chest pain. Her bps' are well controlled now. She denies headaches, visual changes or ruq opain Objective Data Objective Data Vital Signs: Vital Signs Temp Pulse Resp BP Pulse Ox O2 Del Method O2 Flow Rate 97.2 F L 87 16 134/76 H 100 Room Air 2 11/28/23 10:55 11/28/23 10:55 11/28/23 10:55 11/28/23 10:55 11/28/23 10:55 11/28/23 10:55 11/28/23 04:34 Oxygen Flow Rate (L/min) 2 Oxygen Delivery Method Room Air Weight: 215 lb 6.4 oz Body Mass Index (BMI) 40.6 Intake & Output: Intake and Output for Last 24 Hours 11/26/23 11/27/23 11/28/23 23:59 23:59 23:59 Intake Total 1105 / 1105 930 / 930 Output Total 3300 / 3300 1700 / 1700 Balance -2195 / -2195 -770 / -770 Lab / Micro Data 11/28/23 06:13 11/28/23 06:13 Labs: Laboratory Results - last 24 hr 11/27/23 10:54: Absolute Neuts (auto) 5.2, Absolute Lymphs (auto) 1.75, Total Counted 100, Neutrophils % (Manual) 70, Band Neutrophils % 1, Lymphocytes % (Manual) 24, Monocytes % (Manual) 2, Metamyelocytes % 2 H, Myelocytes % 1 H, Diff Path Review December, Platelet Estimate ADEQUATE, RBC Morphology NORM C+C, Sodium 143, Potassium 3.9, Chloride 114 H, Carbon Dioxide 22.0, Anion Gap 7, BUN 6 L, Creatinine 0.56, Estim Creat Clear Calc 158.56, Est GFR (MDRD) Af Amer 165, Est GFR (MDRD) Non-Af 136, BUN/Creatinine Ratio 10.7, Glucose 93, Calcium 9.0, Total Bilirubin 0.40, AST 32, ALT 44, Alkaline Phosphatase 324 H, Total Protein 6.0 L, Albumin 2.3 L, Globulin 3.7, Albumin/Globulin Ratio 0.6 L 11/28/23 06:13: WBC 5.9, RBC 3.82 L, Hgb 10.2 L, Hct 32.8 L, MCV 85.9, MCH 26.7 L, MCHC 31.1 L, RDW Std Deviation 40.7, RDW Coeff of Dominique 13.2, Plt Count 265, MPV 10.4, Sodium 141, Potassium 3.7, Chloride 110 H, Carbon Dioxide 24.0, Anion Gap 7, BUN 5 L, Creatinine 0.65, Estim Creat Clear Calc 136.61, Est GFR (MDRD) Af Amer 140, Est GFR (MDRD) Non-Af 115, BUN/Creatinine Ratio 7.7 L, Glucose 105, Calcium 7.6 L, Total Bilirubin 0.30, AST 24, ALT 39, Alkaline Phosphatase 308 H, Total Protein 6.2 L, Albumin 2.5 L, Globulin 3.7, Albumin/Globulin Ratio 0.7 L ROS Constitutional Constitutional: Denies chills, fatigue, fever(s), poor appetite or weakness Eyes Eyes: Denies blurry vision, change in vision, seeing flashes or spots in vision ENT HEENT: Denies dizziness, headache(s), loss taste/smell or sore throat Cardiovascular Cardiovascular: Denies chest pain, dizziness, dyspnea, irregular heart rhythm, palpitations or rapid heart rate Respiratory/Chest Respiratory/Chest: Denies chest tightness, cough, dyspnea or breast pain Gastrointestinal Gastrointestinal: Denies abdominal pain, constipation or vomiting Genitourinary Genitourinary: Denies dysuria or flank pain Musculoskeletal Musculoskeletal: Denies difficulty walking, joint pain, limited range of motion or numbness Neurologic Neurologic: Denies abnormal movements, abnormal speech, dizziness, numbness, seizure-like activity or syncope Psychiatric Psychiatric: Denies anxiety, behavioral changes, change in appetite, confusion, depression or suicidal thoughts Physical Exam Const alert, oriented x3 and no apparent distress General Appearance: cooperative and comfortable Resp normal respiratory effort Cardio regular rate GI normal to inspection, nondistended, normoactive bowel sounds GI Narrative: uterus is firm below umbilicus Palpation: soft Back/Spine no CVA tenderness and thoraco-lumbar ROM normal Extremity normal to inspection, no clubbing, cyanosis or edema, no calf tenderness and no pedal edema Psych mental status grossly normal, thought process normal, cooperative, affect normal, speech normal, activity/motor behavior normal, denies homicidal ideation and denies suicidal ideation Assessment & Plan (1) Preeclampsia, severe: PLAN: ok to stop mag now will observe in house for next 24 hours per patient request. continue labetalol 300 tid and procardia 30 xl daily
[2023-11-28] MEDS: Senna/Docusate Sodium 1 Tablet PO (13:15)
[2023-11-28 15:42] LABS: Pathologist Review Reviewed
[2023-11-28] MEDS: NIFEdipine 30 MG Tablet PO (22:22)
[2023-11-29 00:02] VITALS: BP 117/55; PULSE 72; RESP 18; TEMP 36.3; O2SAT 97
[2023-11-29 04:23] VITALS: BP 144/70; PULSE 69
[2023-11-29 04:24] VITALS: BP 144/70; PULSE 69; RESP 18
--- NOTE | 2023-11-29 05:38 | PCM.PN.OB ---
Subjective Subjective Patient doing well without complaints. She is Ambulating and voiding well. Feeding well. Denies chest pain, shortness of breath, calf pain/swelling, fevers, chills, lightheadedness. Objective Data Objective Data Vital Signs: Vital Signs Temp Pulse Resp BP Pulse Ox O2 Del Method O2 Flow Rate 97.4 F L 69 18 144/70 H 97 Room Air 2 11/29/23 00:02 11/29/23 04:24 11/29/23 04:24 11/29/23 04:24 11/29/23 00:02 11/29/23 04:11/28/23 04:34 Oxygen Flow Rate (L/min) 2 Oxygen Delivery Method Room Air Weight: 215 lb 6.4 oz Body Mass Index (BMI) 40.6 Intake & Output: Intake and Output for Last 24 Hours 11/27/23 11/28/23 11/29/23 23:59 23:59 23:59 Intake Total 1105 / 1105 1200 / 1200 Output Total 3300 / 3300 2200 / 2200 Balance -2195 / -2195 -1000 / -1000 Lab / Micro Data 11/28/23 06:13 11/28/23 06:13 Labs: Laboratory Results - last 24 hr 11/27/23 10:54: Diff Path Review Reviewed 11/28/23 06:13: WBC 5.9, RBC 3.82 L, Hgb 10.2 L, Hct 32.8 L, MCV 85.9, MCH 26.7 L, MCHC 31.1 L, RDW Std Deviation 40.7, RDW Coeff of Dominique 13.2, Plt Count 265, MPV 10.4, Sodium 141, Potassium 3.7, Chloride 110 H, Carbon Dioxide 24.0, Anion Gap 7, BUN 5 L, Creatinine 0.65, Estim Creat Clear Calc 136.61, Est GFR (MDRD) Af Amer 140, Est GFR (MDRD) Non-Af 115, BUN/Creatinine Ratio 7.7 L, Glucose 105, Calcium 7.6 L, Total Bilirubin 0.30, AST 24, ALT 39, Alkaline Phosphatase 308 H, Total Protein 6.2 L, Albumin 2.5 L, Globulin 3.7, Albumin/Globulin Ratio 0.7 L ROS Constitutional Constitutional: Denies chills, fatigue, fever(s), poor appetite or weakness Eyes Eyes: Denies blurry vision, change in vision, seeing flashes or spots in vision ENT HEENT: Denies dizziness, headache(s), loss taste/smell or sore throat Cardiovascular Cardiovascular: Denies chest pain, dizziness, dyspnea, irregular heart rhythm, palpitations or rapid heart rate Respiratory/Chest Respiratory/Chest: Denies chest tightness, cough, dyspnea or breast pain Gastrointestinal Gastrointestinal: Denies abdominal pain, constipation or vomiting Genitourinary Genitourinary: Denies dysuria or flank pain Musculoskeletal Musculoskeletal: Denies difficulty walking, joint pain, limited range of motion or numbness Neurologic Neurologic: Denies abnormal movements, abnormal speech, dizziness, numbness, seizure-like activity or syncope Psychiatric Psychiatric: Denies anxiety, behavioral changes, change in appetite, confusion, depression or suicidal thoughts Physical Exam Const alert, oriented x3 and no apparent distress General Appearance: cooperative and comfortable Resp normal respiratory effort Cardio regular rate GI normal to inspection, nondistended, normoactive bowel sounds GI Narrative: uterus is firm below umbilicus Palpation: soft Back/Spine no CVA tenderness and thoraco-lumbar ROM normal Extremity normal to inspection, no clubbing, cyanosis or edema, no calf tenderness and no pedal edema Psych mental status grossly normal, thought process normal, cooperative, affect normal, speech normal, activity/motor behavior normal, denies homicidal ideation and denies suicidal ideation Assessment & Plan (1) Preeclampsia, severe: PLAN: bp's are stable in the 140's/70's-80's. She is asymptomatic currently and stable for dc to home to continue labetalol 300mg tid and procardia 30 xl daily. Charges/Coding Multi Select Codes Visit Charges Visit Charges: 77833 Subs Hosp L3
[2023-11-29] MEDS: Labetalol 200 MG Tablet 300 MG PO (06:49)
[2023-11-29 07:55] VITALS: BP 143/88; PULSE 82
[2023-11-29 08:25] VITALS: BP 143/88; PULSE 82; RESP 16; TEMP 36.8; O2SAT 98
--- NOTE | 2023-11-29 08:29 | NURSING ---
Lower abdominal silver mepilex removed without difficulty. Incision with edges well approximated, no drainage noted
== END 2023-11-29 08:50 | disposition home or self-care (01) | DRG 776 ==
LOC: ED 00:43 → WP 11-28 09:22
PROVIDERS: Admitting Provider Obstetrics & Gynecology; Emergency Provider Emergency Medicine; Visit Provider Obstetrics & Gynecology
DX: O14.15 Severe pre-eclampsia, complicating the puerperium (principal); Z79.899 Other long term (current) drug therapy
CPT/HCPCS: 71045; 71275; 80048; 80053; 81001; 82570; 83605; 83615; 83690; 83735; 84300; 84484; 84550; 85025; 85027; 85384; 85610; 85730; 93005; 99284; Q9967; A4216; J2405

== ENCOUNTER → 2023-12-04 | Outpatient (CLI) | payer OTHER, SELFPAY | END | disposition home or self-care (01) | PROVIDERS: Visit Provider Nurse Practitioner Women's Health | DX: R30.0 Dysuria (principal) | CPT/HCPCS: 87086 ==

== ENCOUNTER → 2024-01-02 | Outpatient (CLI) | payer OTHER, SELFPAY ==
[2024-01-07 21:13] LABS: HPV Reflexed? NOT INDICATED
== END | disposition home or self-care (01) ==
PROVIDERS: PCP Family Medicine; Referring Provider Nurse Practitioner Women's Health; Visit Provider Nurse Practitioner Women's Health
DX: Z12.4 Encounter for screening for malignant neoplasm of cervix (principal); T81.41XA Infection following a procedure, superficial incisional surgical site, initial encounter; X58.XXXA Exposure to other specified factors, initial encounter
CPT/HCPCS: 87070; 87075; 87077; 87186; 87205; 88175; G0145

== ENCOUNTER → 2024-01-10 | Outpatient (CLI) | payer OTHER, SELFPAY | END | disposition home or self-care (01) | LOC: LABSPEC 17:20 | PROVIDERS: PCP Family Medicine; Referring Provider Advanced Practice Midwife; Visit Provider Advanced Practice Midwife | DX: N89.8 Other specified noninflammatory disorders of vagina (principal) | CPT/HCPCS: 87070; 87205 ==